=== PATIENT | female | born 1980 | race Caucasian/White ===

== ENCOUNTER 2018-03-07 08:44 | Observation (INO) ==
[2018-03-07 09:36] LABS: Bilirubin,Urine Negative (Negative); Clarity,Urine Cloudy (Clear); Glucose,Urine (UA) Negative (Negative); Leukocyte Esterase,Urine Negative (Negative); Nitrite,Urine Negative (Negative); Specific Gravity,Urine 1.015 (1.002-1.035); Urobilinogen,Urine 0.2 mg/dL (Less than 2)
[2018-03-07 09:38] LABS: Color,Urine Pink (Yellw/Straw)
[2018-03-07 09:41] LABS: RBC,Urine Innumerable /hpf (0-3); Squamous Epithelial Cell,Urine 0-5 /hpf (0-5)
--- NOTE | 2018-03-07 09:44 | ED ---
HPI General Chief Complaint: Abdominal Pain Stated Complaint: blood in urine/fever/leg/back pain-seen here yest Time Seen by Provider: 03/07/18 09:13 History of Present Illness HPI narrative: This is a 37-year-old female with a history of lupus, who presents here with complaints of abdominal pain with bloody urine. The patient' s been seen here twice in the last 4 days. She was offered admission yesterday however wished to go home. She states that when she got home, the pain became so severe that she is back again today and agrees to be admitted. She reports subjective fever at home. She states that she believes that is likely secondary to her lupus. She reports pain in her anterior thighs bilaterally. She denies any previous history of hematuria with previous lupus flares. She has been taking all of her medication as prescribed. Related Data Home Medications Medication Instructions Recorded Confirmed hydroxychloroquine [Plaquenil] 200 mg PO BID 03/02/18 03/07/18 levothyroxine [Synthroid] 25 mcg PO DAILY 03/02/18 03/07/18 Previous Rx's Medication Instructions Recorded ondansetron 8 mg PO Q8H PRN #10 tab 03/02/18 oxycodone 10 mg PO Q6H PRN #20 tab 03/02/18 sulfamethoxazole-trimethoprim 1 tab PO BID 7 Days #14 tab 03/02/18 [Bactrim DS] oxycodone-acetaminophen [Percocet] 1 tab PO Q4-6H PRN #12 tab 03/06/18 prednisone See Label Instructions PO PER PK 03/06/18 DIR #21 each Allergies Allergy/AdvReac Type Severity Reaction Status Date / Time metoclopramide [From Reglan] Allergy Severe Anxiety Verified 03/07/18 08:51 prochlorperazine Allergy Anxiety Verified 03/07/18 10:40 [From Compazine] ketorolac [From Toradol] AdvReac Intermediate Hives Verified 03/07/18 08:51 Review of Systems Constitutional Denies chills and Reports fever(s) (Subjective.) Eyes Reports system reviewed and no additional complaints, except as docu ENT Reports system reviewed and no additional complaints, except as docu Cardiovascular Reports system reviewed and no additional complaints, except as docu Respiratory Reports system reviewed and no additional complaints, except as docu Gastrointestinal Reports abdominal pain (Suprapubic pain), Denies nausea and Denies vomiting Genitourinary Reports hematuria and Reports dysuria Musculoskeletal Denies back pain Neurologic Reports system reviewed and no additional complaints, except as docu PMFSH Social History Social History Substance History: No History of Abuse Second Hand Smoke Exposure: No Smoking Status: Former smoker Tobacco Type: Cigarettes How Often Do You Have a Drink Containing Alcohol: Monthly or less Recent Travel in [facility] within the Last 8 Weeks: No Recent Out of Country Travel within the Last 8 Weeks: No Immunization History Tetanus Immunization: <5 Years Exam Narrative Exam Narrative: GENERAL: Well-developed well-nourished female in no acute respiratory distress. SKIN: Focused skin assessment warm/dry. HEAD: Atraumatic. Normocephalic. EYES: No scleral icterus. No injection or drainage. ENT: No nasal bleeding or discharge. Mucous membranes pink and moist. NECK: Trachea midline. Supple. CARDIOVASCULAR: Regular rate and rhythm. No murmur appreciated. RESPIRATORY: No accessory muscle use. Clear to auscultation. Breath sounds equal bilaterally. GASTROINTESTINAL: Abdomen soft, nondistended. Patient has subjective tenderness in her infraumbilical area. Positive guarding. No rebound. MUSCULOSKELETAL: No obvious deformities. No clubbing. No cyanosis. No edema. Objective pain in her anterior thighs bilaterally. NEUROLOGICAL: Awake and alert. No obvious cranial nerve deficits. Motor grossly within normal limits. Normal speech. Course Initial Documented Vital Signs Temperature 98.4 F 03/07/18 08:49 Pulse Rate 80 03/07/18 08:49 Respiratory Rate 14 03/07/18 08:49 Blood Pressure 125/73 03/07/18 08:49 Pulse Oximetry 98 03/07/18 08:49 Last Documented Vital Signs Temperature 98.4 F 03/07/18 08:49 Pulse Rate 69 03/07/18 11:29 Respiratory Rate 16 03/07/18 11:29 Blood Pressure 113/63 03/07/18 11:29 Pulse Oximetry 96 03/07/18 11:29 Medical Decision Making MDM Narrative Medical decision making narrative: 37-year-old female history of lupus, seen here twice previously in the last 4 days, presents today with complaints of continued pain and hematuria. Patient also reports fever. Urinalysis shows worsening hematuria. Patient is afebrile here. She is agreed for admission today for pain control. Case was discussed with Dr. Alhaji Yung, [facility]ist. Medical Screen Exam Complete: Yes Emergency Medical Condition: Yes Differential Diagnosis Differential Diagnosis: Lupus flare versus hemorrhagic cystitis versus small renal calculus Lab Data Result diagrams: 03/07/18 10:20 03/07/18 10:20 Lab Results 03/07/18 03/07/18 03/07/18 Range/Units 09:27 10:20 10:20 CBC w Diff Auto diff final WBC 13.3 H D (4.0-11.0) th/mm3 RBC 3.75 L (4.00-5.30) mil/mm3 Hgb 12.1 (11.6-15.3) gm/dL Hct 35.5 (35.0-46.0) % MCV 94.7 (80.0-100.0) fL MCH 32.2 (27.0-34.0) pg MCHC 34.0 (32.0-36.0) % RDW 13.4 (11.6-17.2) % Plt Count 296 (150-450) th/mm3 MPV 7.8 (7.0-11.0) fL Neut % (Auto) 77.9 H (16.0-70.0) % Lymph % (Auto) 12.3 (9.0-44.0) % [place] % (Auto) 6.9 (0.0-8.0) % Eos % (Auto) 0.1 (0.0-4.0) % Baso % (Auto) 2.8 H (0.0-2.0) % Neut # (Auto) 10.4 H (1.8-7.7) th/mm3 Lymph # (Auto) 1.6 (1.0-4.8) th/mm3 [place] # (Auto) 0.9 (0.0-0.9) th/mm3 Eos # (Auto) 0.0 (0.0-0.4) th/mm3 Baso # (Auto) 0.4 H (0.0-0.2) th/mm3 WBC Differential . Differential Comment . Sodium 139 (136-145) meq/L Potassium 3.8 (3.5-5.1) meq/L Chloride 102 (98-107) meq/L Carbon Dioxide 29.5 (21.0-32.0) meq/L Anion Gap 8 (5-15) meq/L BUN 14 (7-18) mg/dL Creatinine 0.80 (0.50-1.00) mg/dL Estimated GFR 80 L (>89) mL/min Random Glucose 101 (74-106) mg/dL Calcium 8.4 L (8.5-10.1) mg/dL Total Bilirubin 0.4 (0.2-1.0) mg/dL AST 17 (15-37) U/L ALT 21 (10-53) U/L Alkaline Phosphatase 64 (45-117) U/L Total Protein 7.3 (6.4-8.2) g/dL Albumin 3.8 (3.4-5.0) g/dL Lipase 139 (73-393) U/L Ur Collection Type Clean catch Urine Color [place] H (Yellw/Straw) Urine Clarity Cloudy H (Clear) Urine pH 8.0 (5.0-8.5) Ur Specific [place] 1.015 (1.002-1.035) Urine Protein Trace (Neg-Trace) mg/dL Urine Glucose (UA) Negative (Negative) mg/dL Urine Ketones Negative (Negative) mg/dL Urine Occult Blood Large H (Negative) Urine Nitrate Negative (Negative) Urine Bilirubin Negative (Negative) Urine Urobilinogen 0.2 (Less than 2) mg/dL Ur Leukocyte Esterase Negative (Negative) Urine RBC Innumerable H (0-3) /hpf Urine WBC 6-8 H (0-5) /hpf Ur Squamous Epith Cells 0-5 (0-5) /hpf Micro UA Comment Culture not ind Ur Microscopic Review Microscopic reviewed Urine Culture Comments Culture not ind Discharge Plan Discharge Disposition Patient Disposition: ED Admit(ED Internal Use Only) Discharge Order Discharge Orders: ED Use Only Admit Order (Routine); Ordered 03/07/18 Ordered By: Asad Chamberlain Discharge Details Diagnosis: Intractable abdominal pain, Hematuria, Lupus (systemic lupus erythematosus) Physicians Team ED Provider: Asad Chamberlain Primary Care Provider: UNKNOWN, Attending Provider: Alhaji Yung Rxs /Orders / Referrals /Forms Prescriptions: No Action levothyroxine [Synthroid] 25 mcg Tablet 25 mcg PO DAILY RF: 0 hydroxychloroquine [Plaquenil] 200 mg Tablet 200 mg PO BID RF: 0 sulfamethoxazole-trimethoprim [Bactrim DS] 800-160 mg tablet 1 tab PO BID 7 Days Qty: 14 RF: 0 ondansetron 8 mg tablet,disintegrating 8 mg PO Q8H PRN (Reason: nausea and vomiting) Qty: 10 RF: 1 oxycodone 10 mg tablet 10 mg PO Q6H PRN (Reason: Acute Pain Exception) Qty: 20 RF: 0 prednisone 10 mg tablets,dose pack See Label Instructions PO PER PKG DIR Qty: 21 RF: 0 oxycodone-acetaminophen [Percocet] 5-325 mg tablet 1 tab PO Q4-6H PRN (Reason: pain) Qty: 12 RF: 0 Status ED Status: Admitted Observation Patient
[2018-03-07 10:31] LABS: Baso # (Auto) 0.4 th/mm3 (0.0-0.2); Baso % (Auto) 2.8 % (0.0-2.0); Eos % (Auto) 0.1 % (0.0-4.0); Hematocrit 35.5 % (35.0-46.0); Hemoglobin 12.1 gm/dL (11.6-15.3); Lymph # (Auto) 1.6 th/mm3 (1.0-4.8); Lymph % (Auto) 12.3 % (9.0-44.0); Mean Corpuscular Hemoglobin 32.2 pg (27.0-34.0); Mean Corpuscular Volume 94.7 fL (80.0-100.0); Mean Platelet Volume 7.8 fL (7.0-11.0); Mono # (Auto) 0.9 th/mm3 (0.0-0.9); Mono % (Auto) 6.9 % (0.0-8.0); Neut # (Auto) 10.4 th/mm3 (1.8-7.7); Neut % (Auto) 77.9 % (16.0-70.0); Platelet Count 296 th/mm3 (150-450); Red Blood Count 3.75 mil/mm3 (4.00-5.30); Red Cell Distribution Width 13.4 % (11.6-17.2); White Blood Count 13.3 th/mm3 (4.0-11.0)
[2018-03-07] MEDS ORDERED: HYDROmorphone PF Inj 2 MG/ML Vial IV.PUSH ONE ×2 (10:35→11:22)
[2018-03-07 10:42] LABS: Chloride 102 meq/L (98-107); Potassium 3.8 meq/L (3.5-5.1); Sodium 139 meq/L (136-145)
[2018-03-07 10:45] LABS: Calcium 8.4 mg/dL (8.5-10.1)
[2018-03-07 10:46] LABS: Albumin 3.8 g/dL (3.4-5.0); Anion Gap 8 meq/L (5-15); Blood Urea Nitrogen 14 mg/dL (7-18); Carbon Dioxide 29.5 meq/L (21.0-32.0); Glucose,Random 101 mg/dL (74-106); Lipase 139 U/L (73-393)
[2018-03-07 10:49] LABS: Alanine Aminotransferase 21 U/L (10-53); Aspartate Aminotransferase 17 U/L (15-37); Glomerular Filtration Rate 80 mL/min (>89)
[2018-03-07 10:50] LABS: Total Protein 7.3 g/dL (6.4-8.2)
[2018-03-07 10:52] LABS: Alkaline Phosphatase 64 U/L (45-117)
[2018-03-07] MEDS ORDERED: Bisacodyl 10 MG Supp RECTAL PRN (10:52)
[2018-03-07] MEDS: Sod Chloride 0.9% Inj 1,000 ML IV.CONT SCH ×2 (11:07→23:21)
--- NOTE | 2018-03-07 12:06 | P.HP ---
History of Present Illness Primary Care Physician: UNKNOWN Chief Complaint: Abdominal pain and hematuria History of Present Illness: This is a pleasant 37-year-old female patient with a known medical history of lupus and hypothyroidism presented to the ED with a 4-day complaint of abdominal pain and hematuria. Patient has been to the ER 3 times in the past week with the same complaints, she states that her abdominal pain has worsened over the past several days, starting in her left upper quadrant and radiating to the mid abdomen as well as left back pain. She does admit to subjective fevers at home with a T-max of 101 as well as chills, as well as nausea and vomiting. She has been unable to eat or drink anything without any emesis and nausea. Patient also states that she noticed blood in her urine 4 days ago which has not improved. Patient does not follow with a director consumer, states that due to insurance reasons she has not followed up. She does take Plaquenil at home. Her last serious flare-up of lupus was roughly 3 years ago and at that time she did have hematuria and followed with a urologist. Patient states she may be having a flare-up, states that she has some bruising on her upper extremities as well as the overall pain, this is similar to what she has had in the past. - Diagnosis (1) Intractable abdominal pain (2) Hematuria (3) Lupus (systemic lupus erythematosus) Review of Systems All other systems reviewed negative except as stated in HPI PMFSH - History History Provided By: Patient - Medical History Medical History: Medical History (Last Reviewed 03/07/18 @ 12:04 by Yumiko Sahni) H/O: hysterectomy Lupus - Surgical History Surgical History: Surgical History (Last Reviewed 03/07/18 @ 12:04 by Yumiko Sahni) Hx laparoscopic cholecystectomy - Family History Family History: Family History (Last Updated 03/07/18 @ 12:05 by Yumiko Sahni) Father Lupus (systemic lupus erythematosus) - Social History I have reviewed the patient's Social History: Yes - Tobacco History Second Hand Smoke Exposure: No Tobacco Use In Past 30 Days: No (quit 2014) Smoking Status: Former smoker Tobacco Type: Cigarettes - Alcohol History How Often Do You Have a Drink Containing Alcohol: Monthly or less - Substance Use History Substance History: No History of Abuse - Travel History Recent Travel in the [place] Within the Last 8 Weeks: No Recent Travel Out of the Country Within the Last 8 Weeks: No - Immunization History Tetanus Immunization: <5 Years Medications and Allergies Active Medications: Active Medications Acetaminophen (Tylenol) 650 mg PO Q4H PRN PRN Reason: Temp > 100.4 Al Hydroxide/Mg Hydroxide (Milk Of Magnesia Liq) 30 ml PO Q12H PRN PRN Reason: Mild Constipation Bisacodyl (Dulcolax Supp) 10 mg RECTAL DAILY PRN PRN Reason: SEVERE CONSITIPATION Sodium Chloride (Ns Inj) 1,000 mls @ 100 mls/hr IV.CONT .Q10H ALEX Last Admin: 03/07/18 11:07 Dose: 100 mls/hr Lactulose (Lactulose Liq) 30 ml PO DAILY PRN PRN Reason: SEVERE CONSITIPATION Ondansetron HCl (Zofran Inj) 4 mg IV.PUSH Q6H PRN PRN Reason: NAUSEA OR VOMITING Sennosides (Senokot) 17.2 mg PO Q12H PRN PRN Reason: Moderate Constipation Sodium Chloride (Ns Flush) 2 ml IV.FLUSH PRN PRN PRN Reason: FLUSH AFTER USING IV ACCESS Sodium Chloride (Ns Flush) 2 ml IV.FLUSH BID ALEX Sodium Chloride (Ns Flush) 2 ml IV.FLUSH PRN PRN PRN Reason: FLUSH AFTER USING IV ACCESS Allergies Allergy/AdvReac Type Severity Reaction Status Date / Time metoclopramide [From Reglan] Allergy Severe Anxiety Verified 03/07/18 08:51 prochlorperazine Allergy Anxiety Verified 03/07/18 10:40 [From Compazine] ketorolac [From Toradol] AdvReac Intermediate Hives Verified 03/07/18 08:51 Home Medications Medication Instructions Recorded Confirmed Type hydroxychloroquine [Plaquenil] 200 mg PO BID 03/02/18 03/07/18 History levothyroxine [Synthroid] 25 mcg PO DAILY 03/02/18 03/07/18 History Exam Vital signs: Vital Signs 03/07/18 08:49 03/07/18 10:28 03/07/18 11:29 Temperature 98.4 F Pulse Rate 80 70 69 Respiratory Rate 14 18 16 Blood Pressure 125/73 127/67 113/63 Pulse Oximetry 98 98 96 Intake & Output 03/06/18 03/07/18 03/07/18 18:59 06:59 18:59 Weight 77.4 kg Other: # Voids 1 Date of Last Bowel Movement 03/06/18 Narrative: GENERAL: Well-developed, well-nourished patient with abdominal pain. SKIN: Warm and dry. No rash. HEAD: Normocephalic. Atraumatic. EYES: Pupils equal and round. No scleral icterus. No injection or drainage. ENT: No nasal bleeding or discharge. Mucous membranes pink and moist. NECK: Supple. Trachea midline. CARDIOVASCULAR: Regular rate and rhythm. S1, S2 noted. No murmur appreciated. RESPIRATORY: No accessory muscle use. Clear to auscultation. Breath sounds equal bilaterally. GASTROINTESTINAL: Abdomen soft, non-tender, nondistended. Normoactive bowel sounds x4. MUSCULOSKELETAL: No obvious deformities. Extremities without clubbing, cyanosis , or edema. NEUROLOGICAL: Awake and alert. No obvious cranial nerve deficits. Motor grossly within normal limits. 5/5 muscle strength in bilateral upper and lower extremities. Normal speech. PSYCHIATRIC: Appropriate mood and affect; insight and judgment normal. Results - Labs CBC & Chem 7: 03/07/18 10:20 03/07/18 10:20 Labs: Laboratory Results - last 24 hr 03/07/18 03/07/18 03/07/18 09:27 10:20 10:20 CBC w Diff Auto diff final WBC 13.3 H D RBC 3.75 L Hgb 12.1 Hct 35.5 MCV 94.7 MCH 32.2 MCHC 34.0 RDW 13.4 Plt Count 296 MPV 7.8 Neut % (Auto) 77.9 H Lymph % (Auto) 12.3 [place] % (Auto) 6.9 Eos % (Auto) 0.1 Baso % (Auto) 2.8 H Neut # (Auto) 10.4 H Lymph # (Auto) 1.6 [place] # (Auto) 0.9 Eos # (Auto) 0.0 Baso # (Auto) 0.4 H WBC Differential . Differential Comment . Sodium 139 Potassium 3.8 Chloride 102 Carbon Dioxide 29.5 Anion Gap 8 BUN 14 Creatinine 0.80 Estimated GFR 80 L Random Glucose 101 Calcium 8.4 L Total Bilirubin 0.4 AST 17 ALT 21 Alkaline Phosphatase 64 Total Protein 7.3 Albumin 3.8 Lipase 139 Ur Collection Type Clean catch Urine Color [place] H Urine Clarity Cloudy H Urine pH 8.0 Ur Specific [place] 1.015 Urine Protein Trace Urine Glucose (UA) Negative Urine Ketones Negative Urine Occult Blood Large H Urine Nitrate Negative Urine Bilirubin Negative Urine Urobilinogen 0.2 Ur Leukocyte Esterase Negative Urine RBC Innumerable H Urine WBC 6-8 H Ur Squamous Epith Cells 0-5 Micro UA Comment Culture not ind Ur Microscopic Review Microscopic reviewed Urine Culture Comments Culture not ind Caprini VTE Risk Assessment Caprini VTE Risk Assessment: No/Low Risk (score <= 1) Caprini Risk Assessment Model: Point Value = 1 Point Value = 2 Point Value = 3 Point Value = 5 Age 41-60 Minor surgery BMI > 25 kg/m2 Swollen legs Varicose veins or History of unexplained or recurrent spontaneous Oral contraceptives or hormone replacement Sepsis (< 1 month) Serious lung disease, including pneumonia (< 1 month) Abnormal pulmonary function Acute myocardial infarction Congestive heart failure (< 1 month) History of inflammatory bowel disease Medical patient at bed rest Age 61-74 Arthroscopic surgery Major open surgery (> 45 min) Laparoscopic surgery (> 45 min) Malignancy Confined to bed (> 72 hours) Immobilizing plaster cast Central venous access Age >= 75 History of VTE Family history of VTE Factor V Leiden Prothrombin [id number] Lupus anticoagulant Anticardiolipin antibodies Elevated serum homocysteine Heparin-induced thrombocytopenia Other congenital or acquired thrombophilia Stroke (< 1 month) Elective arthroplasty Hip, pelvis, or leg fracture Acute spinal cord injury (< 1 month) Prophylaxis Regimen: Total Risk Factor Score Risk Level Prophylaxis Regimen 0-1 Low Early ambulation 2 Moderate Order ONE of the following: *Sequential Compression Device (SCD) *Heparin 5000 units SQ BID 3-4 Higher Order ONE of the following medications: *Heparin 5000 units SQ TID *Enoxaparin/Lovenox 40 mg SQ daily (WT < 150 kg, CrCl > 30 mL/min) *Enoxaparin/Lovenox 30 mg SQ daily (WT < 150 kg, CrCl > 10-29 mL/min) *Enoxaparin/Lovenox 30 mg SQ BID (WT < 150 kg, CrCl > 30 mL/min) AND/OR *Sequential Compression Device (SCD) 5 or more Highest Order ONE of the following medications: *Heparin 5000 units SQ TID (Preferred with Epidurals) *Enoxaparin/Lovenox 40 mg SQ daily (WT < 150 kg, CrCl > 30 mL/min) *Enoxaparin/Lovenox 30 mg SQ daily (WT < 150 kg, CrCl > 10-29 mL/min) *Enoxaparin/Lovenox 30 mg SQ BID (WT < 150 kg, CrCl > 30 mL/min) AND *Sequential Compression Device (SCD) Assessment and Plan - Assessment (1) Intractable abdominal pain Code(s): R10.9 - Unspecified abdominal pain Status: Acute (2) Hematuria Code(s): R31.9 - Hematuria, unspecified Status: Acute (3) Lupus (systemic lupus erythematosus) Code(s): M32.9 - Systemic lupus erythematosus, unspecified Status: Acute - Plan This is a 37-year-old female patient who presented to the ED with: Abdominal pain x 4 days Nausea and vomiting -Differential possible constipation vs gastroenteritis vs SLE flare -Abdominal/pelvis CT reviewed from yesterday in ED showing unremarkable kidneys and urinary bladder. No inflammatory change. Moderate amount of stool present. -CBC and BMP reviewed, essentially unremarkable. UA negative. -Mild leukocytosis, was given steroids in ED yesterday, may be contributing. -Continue IVF to ensure hydration. -Pain control with IV Dilaudid as needed per pain scale. Was given a total of 2 mg IV in ED. -Antiemetics as needed. Continue bowel regimen. -PO intake as tolerated. Start with clear liquids. -Supportive care. Hematuria -Complaints of hematuria x 4 days. UA negative for infection. -Differential included SLE flare vs hemorrhagic cystitis -Was given 125 mg IV x 1 in ED yesterday. Will add IV steroids scheduled. -Assess response for improvement, may need to consult urology if no improvement. -Continue IVF. History of systemic lupus erythema Possible flare -Patient does complain of upper thigh bruising, says this is typical for her when she is having a flare. -Will check a DIC panel including LDH, reticulocyte count and haptoglobin. -H&H stable. Platelets stable. -Continue to follow. -Continue steroids as ordered. Hypothyroidism, chronic -Continue home Synthroid. DVT prophylaxis: Ambulation. (2) Hematuria Qualifiers: Hematuria type: gross Qualified Code(s): R31.0 - Gross hematuria (3) Lupus (systemic lupus erythematosus) Qualifiers: Systemic lupus erythematosus type: unspecified Systemic lupus erythematosus organ involvement: unspecified Qualified Code(s): M32.9 - Systemic lupus erythematosus, unspecified
[2018-03-07] MEDS ORDERED: HYDROmorphone PF Inj 2 MG/ML Vial IV.PUSH PRN (12:13)
[2018-03-07] MEDS: MethylPREDNISolone Sod Succinate Inj 125 MG/2 ML Vial IV.PUSH SCH ×2 (13:26→20:25)
[2018-03-07] MEDS: HYDROmorphone PF Inj 2 MG/ML Vial IV.PUSH PRN ×4 (14:37→23:18)
[2018-03-07 16:50] LABS: Haptoglobin 174 mg/dL (30-200); Lactate Dehydrogenase 203 U/L (84-246)
[2018-03-07] MEDS: Senna/Docusate Sodium 8.6/50 MG Tablet PO SCH (20:26)
[2018-03-07] MEDS: Hydroxychloroquine 200 MG Tablet PO SCH (20:26)
[2018-03-08] MEDS: HYDROmorphone PF Inj 2 MG/ML Vial IV.PUSH PRN ×7 (02:04→22:09)
[2018-03-08] MEDS: MethylPREDNISolone Sod Succinate Inj 125 MG/2 ML Vial IV.PUSH SCH ×3 (04:54→21:02)
[2018-03-08] MEDS: Senna/Docusate Sodium 8.6/50 MG Tablet PO SCH ×2 (08:12→20:59)
[2018-03-08] MEDS: Hydroxychloroquine 200 MG Tablet PO SCH ×2 (08:12→20:59)
[2018-03-08] MEDS: Sod Chloride 0.9% Inj 1,000 ML IV.CONT SCH ×2 (08:17→18:25)
--- NOTE | 2018-03-08 11:35 | P.PNIM ---
Subjective Interval history: Follow-up hematuria, abdominal pain, nausea and vomiting and generalized pain. Patient is in examined, lying in bed this morning she had complaints of some chest discomfort and overall generalized pain and itching. Requesting Benadryl. EKG showing bradycardia, no ST changes. Patient does have a history of bradycardia she states that at one point they wanted to put in a pacemaker. She has been bradycardic although asymptomatic. Chest pain is resolved. Will increase dose of pain medications this is likely SLE flare. Vital signs stable. Afebrile. Continue to monitor. Physical Exam Vital signs: Vital Signs 03/07/18 13:30 03/07/18 16:00 03/07/18 20:00 Temperature 98 F 98.3 F 98.5 F Pulse Rate 83 79 74 Respiratory Rate 20 20 17 Blood Pressure 117/56 L 123/61 124/65 Pulse Oximetry 95 96 95 03/07/18 21:18 03/07/18 23:00 03/07/18 23:54 Temperature Pulse Rate Respiratory Rate 17 18 18 Blood Pressure Pulse Oximetry 03/08/18 00:00 03/08/18 02:50 03/08/18 08:00 Temperature 96.7 F L 97.1 F L Pulse Rate 55 L 60 Respiratory Rate 18 18 20 Blood Pressure 114/67 137/78 Pulse Oximetry 96 98 Intake & Output 03/07/18 03/08/18 03/08/18 18:59 06:59 18:59 Intake Total 1100 / 1100 1600 / 1600 1000 / 1000 Balance 1100 / 1100 1600 / 1600 1000 / 1000 Weight 77.4 kg Intake: IV 1000 / 1000 1000 / 1000 NS Inj 1,000 ML @ 100 mls/hr IV 1000 / 1000 1000 / 1000 .CONT .Q10H ALEX Rx#:[id number] Oral 1100 / 1100 600 / 600 Other: # Voids 3 2 Date of Last Bowel Movement 03/06/18 03/06/18 Narrative: GENERAL: Well-developed, well-nourished patient with complaints of generalized pain. Itchy all over SKIN: Warm and dry. No rash. HEAD: Normocephalic. Atraumatic. EYES: Pupils equal and round. No scleral icterus. No injection or drainage. ENT: No nasal bleeding or discharge. Mucous membranes pink and moist. NECK: Supple. Trachea midline. CARDIOVASCULAR: Regular rate and rhythm. S1, S2 noted. No murmur appreciated. RESPIRATORY: No accessory muscle use. Clear to auscultation. Breath sounds equal bilaterally. GASTROINTESTINAL: Abdomen soft, non-tender, nondistended. Normoactive bowel sounds x4. MUSCULOSKELETAL: No obvious deformities. Extremities without clubbing, cyanosis , or edema. NEUROLOGICAL: Awake and alert. No obvious cranial nerve deficits. Motor grossly within normal limits. 5/5 muscle strength in bilateral upper and lower extremities. Normal speech. PSYCHIATRIC: Appropriate mood and affect; insight and judgment normal. Results - Labs CBC & Chem 7: 03/07/18 10:20 03/07/18 10:20 Laboratory Results - last 24 hr 03/07/18 03/07/18 10:20 10:20 Retic Count 3.0 Absolute Retic 109.0 Haptoglobin 174 Lactate Dehydrogenase 203 Assessment and Plan - Assessment (1) Intractable abdominal pain Code(s): R10.9 - Unspecified abdominal pain Status: Acute (2) Hematuria Code(s): R31.9 - Hematuria, unspecified Status: Acute (3) Lupus (systemic lupus erythematosus) Code(s): M32.9 - Systemic lupus erythematosus, unspecified Status: Acute - Plan This is a 37-year-old female patient who presented to the ED with: Atypical chest pain History of bradycardia -Midsternal chest pain that is sharp in nature improved with Dilaudid this morning. -EKG obtained, bradycardic, no ST changes to indicate ischemia. Continue on cardiac telemetry. -Check troponin and CK-MB. Follow. -Increased pain medications. Assess response. -Likely secondary to SLE flare. Abdominal pain x 4 days. Improved. Nausea and vomiting. Improved. -Differential possible constipation vs gastroenteritis vs SLE flare -Abdominal/pelvis CT reviewed from yesterday in ED showing unremarkable kidneys and urinary bladder. No inflammatory change. Moderate amount of stool present. -CBC and BMP reviewed, essentially unremarkable. UA negative. -Mild leukocytosis, was given steroids in ED yesterday, may be contributing. -Continue IVF to ensure hydration. -Pain control with IV Dilaudid as needed per pain scale. -Antiemetics as needed. Continue bowel regimen. No BM overnight. -PO intake as tolerated. Tolerating clear liquids. Diet as tolerated. Hematuria. Improved. -Complaints of hematuria x 4 days. -UA negative for infection. -Differential included SLE flare vs hemorrhagic cystitis -Was given 125 mg IV x 1 in ED. Continue IV steroids scheduled. -Assess response for improvement, may need to consult urology if no improvement. -Continue IVF. History of systemic lupus erythema Possible flare -Patient does complain of upper thigh bruising, says this is typical for her when she is having a flare. -LDH, reticulocyte count and haptoglobin all within normal limits. -H&H stable. Platelets stable. -Continue to follow. -Continue steroids as ordered. Hypothyroidism, chronic -Continue home Synthroid. DVT prophylaxis: Ambulation. Discharge Planning: Await clinical improvement (2) Hematuria Qualifiers: Hematuria type: gross Qualified Code(s): R31.0 - Gross hematuria (3) Lupus (systemic lupus erythematosus) Qualifiers: Systemic lupus erythematosus type: unspecified Systemic lupus erythematosus organ involvement: unspecified Qualified Code(s): M32.9 - Systemic lupus erythematosus, unspecified
[2018-03-08 12:50] LABS: Chloride 107 meq/L (98-107); Potassium 3.9 meq/L (3.5-5.1); Sodium 142 meq/L (136-145)
[2018-03-08 12:52] LABS: Anion Gap 8 meq/L (5-15); Calcium 7.8 mg/dL (8.5-10.1); Carbon Dioxide 27.3 meq/L (21.0-32.0); Glucose,Random 132 mg/dL (74-106)
[2018-03-08 12:53] LABS: Blood Urea Nitrogen 8 mg/dL (7-18)
[2018-03-08 12:56] LABS: Glomerular Filtration Rate Greater Than 89 mL/min (>89)
[2018-03-08 13:01] LABS: Creatine Kinase 76 U/L (26-192)
[2018-03-08 13:08] LABS: Baso # (Auto) 0.1 th/mm3 (0.0-0.2); Baso % (Auto) 1.2 % (0.0-2.0); Hematocrit 33.2 % (35.0-46.0); Lymph # (Auto) 0.9 th/mm3 (1.0-4.8); Lymph % (Auto) 7.7 % (9.0-44.0); Mean Corpuscular HGB Conc 33.1 % (32.0-36.0); Mean Corpuscular Hemoglobin 31.3 pg (27.0-34.0); Mean Corpuscular Volume 94.7 fL (80.0-100.0); Mean Platelet Volume 7.8 fL (7.0-11.0); Mono # (Auto) 0.4 th/mm3 (0.0-0.9); Mono % (Auto) 3.5 % (0.0-8.0); Neut # (Auto) 10.9 th/mm3 (1.8-7.7); Neut % (Auto) 87.6 % (16.0-70.0); Platelet Count 276 th/mm3 (150-450); Red Blood Count 3.51 mil/mm3 (4.00-5.30); Red Cell Distribution Width 13.3 % (11.6-17.2); White Blood Count 12.3 th/mm3 (4.0-11.0)
[2018-03-09] MEDS: HYDROmorphone PF Inj 2 MG/ML Vial IV.PUSH PRN ×5 (01:54→22:48)
[2018-03-09] MEDS: Sod Chloride 0.9% Inj 1,000 ML IV.CONT SCH ×2 (04:00→14:10)
[2018-03-09] MEDS: MethylPREDNISolone Sod Succinate Inj 125 MG/2 ML Vial IV.PUSH SCH ×2 (05:46→21:02)
[2018-03-09] MEDS: Hydroxychloroquine 200 MG Tablet PO SCH ×2 (08:39→21:02)
[2018-03-09] MEDS: Senna/Docusate Sodium 8.6/50 MG Tablet PO SCH ×2 (08:39→21:02)
[2018-03-09] MEDS ORDERED: HYDROmorphone PF Inj 2 MG/ML Vial IV.PUSH PRN (10:04)
--- NOTE | 2018-03-09 10:15 | P.PNIM ---
Subjective Interval history: Follow-up hematuria and SLE flare. Patient seen and examined, lying in bed states she feels mildly improved. Will attempt to wean IV narcotics. Hematuria resolved. CP resolved. Patient is eating well without any nausea or vomiting. Abdominal pain improved. Will assess later this afternoon off IV narcotics and consider DC home. Physical Exam Vital signs: Vital Signs 03/08/18 12:00 03/08/18 16:00 03/08/18 20:00 Temperature 96.5 F L 98.7 F 96.5 F L Pulse Rate 45 L 54 L 67 Respiratory Rate 20 20 18 Blood Pressure 140/66 120/72 110/74 Pulse Oximetry 98 95 98 03/09/18 00:00 03/09/18 04:00 03/09/18 08:40 Temperature 95.5 F L 95.8 F L 97.4 F L Pulse Rate 56 L 49 L 59 L Respiratory Rate 18 18 16 Blood Pressure 128/78 137/83 155/92 H Pulse Oximetry 97 98 96 Intake & Output 03/08/18 03/09/18 03/09/18 18:59 06:59 18:59 Intake Total 2600 / 2600 1720 / 1720 Output Total 1000 / 1000 Balance 2600 / 2600 720 / 720 Weight 82.3 kg Intake: IV 2000 / 2000 1000 / 1000 NS Inj 1,000 ML @ 100 mls/hr IV 2000 / 2000 1000 / 1000 .CONT .Q10H [facility] Rx#:[id number] Oral 600 / 600 720 / 720 Output: Urine 1000 / 1000 Other: # Voids 6 2 Date of Last Bowel Movement 03/08/18 # Bowel Movements 0 Narrative: GENERAL: Well-developed, well-nourished patient in nad. SKIN: Warm and dry. No rash. HEAD: Normocephalic. Atraumatic. EYES: Pupils equal and round. No scleral icterus. No injection or drainage. ENT: No nasal bleeding or discharge. Mucous membranes pink and moist. NECK: Supple. Trachea midline. CARDIOVASCULAR: Regular rate and rhythm. S1, S2 noted. No murmur appreciated. RESPIRATORY: No accessory muscle use. Clear to auscultation. Breath sounds equal bilaterally. GASTROINTESTINAL: Abdomen soft, non-tender, nondistended. Normoactive bowel sounds x4. MUSCULOSKELETAL: No obvious deformities. Extremities without clubbing, cyanosis , or edema. NEUROLOGICAL: Awake and alert. No obvious cranial nerve deficits. Motor grossly within normal limits. 5/5 muscle strength in bilateral upper and lower extremities. Normal speech. PSYCHIATRIC: Appropriate mood and affect; insight and judgment normal. Results - Labs CBC & Chem 7: 03/08/18 12:37 03/08/18 12:30 Laboratory Results - last 24 hr 03/08/18 03/08/18 03/08/18 12:30 12:30 12:37 CBC w Diff Auto diff final WBC 12.3 H RBC 3.51 L Hgb 11.0 L Hct 33.2 L MCV 94.7 MCH 31.3 MCHC 33.1 RDW 13.3 Plt Count 276 MPV 7.8 Neut % (Auto) 87.6 H Lymph % (Auto) 7.7 L [place] % (Auto) 3.5 Eos % (Auto) 0.0 Baso % (Auto) 1.2 Neut # (Auto) 10.9 H Lymph # (Auto) 0.9 L [place] # (Auto) 0.4 Eos # (Auto) 0.0 Baso # (Auto) 0.1 WBC Differential . Differential Comment . Sodium 142 Potassium 3.9 Chloride 107 Carbon Dioxide 27.3 Anion Gap 8 BUN 8 Creatinine 0.69 Estimated GFR Greater than 89 Random Glucose 132 H Calcium 7.8 L Total Creatine Kinase 76 Troponin I Less than 0.02 L Assessment and Plan - Assessment (1) Intractable abdominal pain Code(s): R10.9 - Unspecified abdominal pain Status: Acute (2) Hematuria Code(s): R31.9 - Hematuria, unspecified Status: Acute (3) Lupus (systemic lupus erythematosus) Code(s): M32.9 - Systemic lupus erythematosus, unspecified Status: Acute - Plan This is a 37-year-old female patient who presented to the ED with: Atypical chest pain. Resolved. History of bradycardia -Midsternal chest pain that is sharp in nature that has improved. -EKG obtained, bradycardic, no ST changes to indicate ischemia. Continue on cardiac telemetry. -Troponin and CK-MB, negative. -Continue pain medications, will decrease dose. -Likely secondary to SLE flare. Abdominal pain x 4 days. Improved. Nausea and vomiting. Improved. -Differential possible constipation vs gastroenteritis vs SLE flare. -Abdominal/pelvis CT reviewed from yesterday in ED showing unremarkable kidneys and urinary bladder. No inflammatory change. Moderate amount of stool present. -CBC and BMP reviewed, essentially unremarkable. UA negative. -Mild leukocytosis, was given steroids in ED yesterday, may be contributing. -Continue IVF to ensure hydration. -Pain control with IV Dilaudid as needed per pain scale. -Antiemetics as needed. Continue bowel regimen. BM overnight. -PO intake as tolerated. Tolerating clear liquids. Diet as tolerated. Hematuria. Improved. -Complaints of hematuria x 4 days. -UA negative for infection. -Differential included SLE flare vs hemorrhagic cystitis -Was given 125 mg IV x 1 in ED. Continue IV steroids scheduled. -Assess response for improvement, may need to consult urology if no improvement. -Continue IVF. History of systemic lupus erythema Possible flare, improving. -Patient does complain of upper thigh bruising, says this is typical for her when she is having a flare. -LDH, reticulocyte count and haptoglobin all within normal limits. -H&H stable. Platelets stable. -Continue to follow. -Continue steroids as ordered. Hypothyroidism, chronic -Continue home Synthroid. DVT prophylaxis: Ambulation. Discharge Planning: Possible DC home if patient does well with weaning off narcotics. (2) Hematuria Qualifiers: Hematuria type: gross Qualified Code(s): R31.0 - Gross hematuria (3) Lupus (systemic lupus erythematosus) Qualifiers: Systemic lupus erythematosus type: unspecified Systemic lupus erythematosus organ involvement: unspecified Qualified Code(s): M32.9 - Systemic lupus erythematosus, unspecified
--- NOTE | 2018-03-09 12:26 | ECG ---
Date Performed: 03/08/2018 Time Performed: 08:23:50 PTAGE: 37 years EKG: JUNCTIONAL BRADYCARDIA NONSPECIFIC T-WAVE ABNORMALITY ABNORMAL RHYTHM ECG NO PREVIOUS TRACING DOCTOR: Corey Llanes Interpretating Date/Time 03/09/2018 12:24:26
[2018-03-09] MEDS ORDERED: Famotidine 20 MG Tablet PO ONE ×2 (13:55→14:30)
[2018-03-09] MEDS: Pantoprazole Inj 40 MG Vial IV.PUSH SCH (14:08)
[2018-03-09] MEDS ORDERED: HYDROmorphone PF Inj 0.5 MG/0.5 ML Syringe IV.PUSH ONE (14:10)
[2018-03-09 15:14] LABS: Albumin 3.6 g/dL (3.4-5.0)
[2018-03-09 15:26] LABS: Total Protein 7.1 g/dL (6.4-8.2)
[2018-03-09] MEDS: Sucralfate 1 GM Tablet PO SCH (17:00)
[2018-03-09] MEDS: Polyethylene Glycol 3350 17 GM Packet PO SCH (18:31)
[2018-03-09] MEDS: Acetaminophen 325 MG Tablet PO PRN (22:48)
[2018-03-10] MEDS: Sod Chloride 0.9% Inj 1,000 ML IV.CONT SCH ×2 (02:33→10:24)
[2018-03-10] MEDS: HYDROmorphone PF Inj 2 MG/ML Vial IV.PUSH PRN ×6 (02:33→22:39)
[2018-03-10 06:56] LABS: Chloride 105 meq/L (98-107); Potassium 4.4 meq/L (3.5-5.1); Sodium 141 meq/L (136-145)
[2018-03-10 07:01] LABS: Albumin 3.3 g/dL (3.4-5.0)
[2018-03-10 07:02] LABS: Glucose,Random 138 mg/dL (74-106)
[2018-03-10 07:05] LABS: Anion Gap 7 meq/L (5-15); Blood Urea Nitrogen 9 mg/dL (7-18); Calcium 7.8 mg/dL (8.5-10.1); Carbon Dioxide 28.9 meq/L (21.0-32.0); Lipase 58 U/L (73-393)
[2018-03-10 07:07] LABS: Aspartate Aminotransferase 17 U/L (15-37); Glomerular Filtration Rate Greater Than 89 mL/min (>89)
[2018-03-10 07:09] LABS: Total Protein 6.4 g/dL (6.4-8.2)
[2018-03-10 07:10] LABS: Alkaline Phosphatase 49 U/L (45-117)
[2018-03-10 07:13] LABS: Alanine Aminotransferase 45 U/L (10-53)
[2018-03-10] MEDS: Senna/Docusate Sodium 8.6/50 MG Tablet PO SCH ×2 (08:08→21:42)
[2018-03-10] MEDS: Hydroxychloroquine 200 MG Tablet PO SCH ×2 (08:08→21:33)
[2018-03-10] MEDS: Sucralfate 1 GM Tablet PO SCH ×2 (08:08→16:48)
[2018-03-10] MEDS: Polyethylene Glycol 3350 17 GM Packet PO SCH (08:09)
[2018-03-10] MEDS: MethylPREDNISolone Sod Succinate Inj 125 MG/2 ML Vial IV.PUSH SCH ×2 (08:10→21:34)
[2018-03-10] MEDS ORDERED: Diatrizoate Meglum/Diatrizoate Sod Liq 9 ML UDC PO ONE (11:17)
--- NOTE | 2018-03-10 11:20 | P.PNIM ---
Subjective Interval history: 37-year-old female who is seen examined today for intractable abdominal pain, hematuria, possible lupus exacerbation. Patient laying in bed holding her abdomen sitting rather poorly. She was given a diet yesterday with significant worsening of her upper abdominal pain with severe cramping. Patient is now n.p.o. and still with generalized abdominal discomfort. Discussed with the patient all the findings as far. She did acknowledge understanding. Awaiting GI and urology consultations. Patient did have a fever last night 102.9. Vital signs remained stable. Physical Exam Vital signs: Vital Signs 03/09/18 11:58 03/09/18 12:00 03/09/18 16:00 Temperature 98.4 F 97.7 F Pulse Rate 53 L 57 L 84 Respiratory Rate 18 18 Blood Pressure 124/69 131/78 Pulse Oximetry 95 96 03/09/18 20:00 03/09/18 23:09 03/10/18 00:00 Temperature 99.1 F 102.9 F H 100.7 F H Pulse Rate 78 72 Respiratory Rate 16 18 Blood Pressure 120/74 131/70 Pulse Oximetry 99 93 L 03/10/18 04:00 03/10/18 08:00 Temperature 98.2 F 98.6 F Pulse Rate 67 55 L Respiratory Rate 16 17 Blood Pressure 117/68 138/80 Pulse Oximetry 96 94 L Intake & Output 03/09/18 03/10/18 03/10/18 18:59 06:59 18:59 Intake Total 1000 / 1000 1000 / 1000 1000 / 1000 Balance 1000 / 1000 1000 / 1000 1000 / 1000 Weight 82.8 kg Intake: IV 1000 / 1000 1000 / 1000 1000 / 1000 NS Inj 1,000 ML @ 100 mls/hr IV 1000 / 1000 1000 / 1000 1000 / 1000 .CONT .Q10H [facility] Rx#:[id number] Other: # Voids 6 Date of Last Bowel Movement 03/08/18 03/08/18 # Bowel Movements 1 Narrative: GENERAL: Well-developed, well-nourished, in no acute distress. alert and orientated HEENT: Head is normocephalic without any lesions or masses noted. Facial features are symmetric. Eyes: Extraocular muscles are intact. Conjunctivae were clear. NECK: Supple without any masses. Trachea midline no deviation. No JVD, CARDIAC: Regular rhythm, regular rate. S1/S2 are heard. No murmurs gallops or rubs. LUNGS: Clear to auscultation bilaterally. No wheeze, rhonchi or rales. No use of accessory muscles on inspiration or expiration. ABDOMEN: Soft, nontender. Diffuse abdominal pain. Bowel sounds heard in all 4 quadrants. No organomegaly or masses. Negative rebound, negative guarding EXTREMITIES: No edema, pulses are equal bilaterally. No cyanosis or clubbing NEUROLOGY: Mood and affect appear appropriate. Cranial nerves II through XII grossly intact. Moving all extremities, speech is clear Results - Labs CBC & Chem 7: 03/08/18 12:37 03/10/18 06:05 Laboratory Results - last 24 hr 03/09/18 03/10/18 14:30 06:05 Sodium 141 Potassium 4.4 Chloride 105 Carbon Dioxide 28.9 Anion Gap 7 BUN 9 Creatinine 0.64 Estimated GFR Greater than 89 Random Glucose 138 H Calcium 7.8 L Total Bilirubin 0.4 0.5 Direct Bilirubin 0.1 0.1 Indirect Bilirubin 0.3 0.4 AST 56 H 17 ALT 66 H 45 Alkaline Phosphatase 72 49 Total Protein 7.1 6.4 D Albumin 3.6 3.3 L Lipase 91 58 L Assessment and Plan - Assessment (1) Intractable abdominal pain Code(s): R10.9 - Unspecified abdominal pain Status: Acute (2) Hematuria Code(s): R31.9 - Hematuria, unspecified Status: Acute (3) Lupus (systemic lupus erythematosus) Code(s): M32.9 - Systemic lupus erythematosus, unspecified Status: Acute - Plan Nonspecific abdominal pain, persistent Nausea and vomiting. Resolved -possible constipation vs gastroenteritis vs SLE flare. -Abdominal/pelvis CT was unremarkable kidneys and urinary bladder. No inflammatory change. Moderate amount of stool present. -CBC and BMP unremarkable. Urinalysis without any signs of infection -Continue IVF to ensure hydration. -Pain control with IV Dilaudid as needed per pain scale. -Antiemetics as needed. -PO intake as tolerated. Clear liquid diet Febrile illness -Unknown etiology at this time, -Obtain blood cultures, influenza testing, chest x-ray, urinalysis, repeat CT of the abdomen and pelvis Hematuria. -Complaints of hematuria x 4 days. -UA negative for infection. -Urology consulted for further recommendations Atypical chest pain. History of bradycardia -Could have been secondary to a lupus flare -Patient ruled out for any cardiac etiology with serial cardiac enzymes remain negative, serial EKGs without any changes History of systemic lupus erythema Possible flare, improving. -Patient does complain of upper thigh bruising, says this is typical for her when she is having a flare. -LDH, reticulocyte count and haptoglobin all within normal limits. -Obtain C-reactive protein, sed rate, TUCKER -H&H stable. Platelets stable. -Continue steroids at this time Hypothyroidism, chronic -Continue home Synthroid. DVT prophylaxis: -Low risk, ambulation (2) Hematuria Qualifiers: Hematuria type: gross Qualified Code(s): R31.0 - Gross hematuria (3) Lupus (systemic lupus erythematosus) Qualifiers: Systemic lupus erythematosus type: unspecified Systemic lupus erythematosus organ involvement: unspecified Qualified Code(s): M32.9 - Systemic lupus erythematosus, unspecified
[2018-03-10 12:47] LABS: Bilirubin,Urine Negative (Negative); Clarity,Urine Slightly Cloudy (Clear); Glucose,Urine (UA) Negative (Negative); Leukocyte Esterase,Urine Negative (Negative); Nitrite,Urine Negative (Negative); PH,Urine 7.5 (5.0-8.5); Urobilinogen,Urine 0.2 mg/dL (Less than 2)
[2018-03-10 12:59] LABS: Baso # (Auto) 0.1 th/mm3 (0.0-0.2); Baso % (Auto) 0.9 % (0.0-2.0); Eos % (Auto) 0.1 % (0.0-4.0); Hematocrit 31.8 % (35.0-46.0); Hemoglobin 10.7 gm/dL (11.6-15.3); Lymph # (Auto) 0.9 th/mm3 (1.0-4.8); Lymph % (Auto) 5.7 % (9.0-44.0); Mean Corpuscular HGB Conc 33.8 % (32.0-36.0); Mean Corpuscular Hemoglobin 31.9 pg (27.0-34.0); Mean Corpuscular Volume 94.6 fL (80.0-100.0); Mean Platelet Volume 8.2 fL (7.0-11.0); Mono # (Auto) 0.6 th/mm3 (0.0-0.9); Mono % (Auto) 4.1 % (0.0-8.0); Neut # (Auto) 14.1 th/mm3 (1.8-7.7); Neut % (Auto) 89.2 % (16.0-70.0); Platelet Count 257 th/mm3 (150-450); Red Blood Count 3.36 mil/mm3 (4.00-5.30); Red Cell Distribution Width 13.6 % (11.6-17.2); White Blood Count 15.7 th/mm3 (4.0-11.0)
[2018-03-10 12:59] LABS: Color,Urine Pink (Yellw/Straw)
[2018-03-10 13:00] LABS: RBC,Urine 51-189 /hpf (0-3); WBC,Urine 0-5 /hpf (0-5)
--- NOTE | 2018-03-10 13:34 | P.CONURO ---
History of Present Illness Service: Urology Consult date: 03/10/18 Requesting Physician: Yumiko Sahni Reason for Consult: hematuria Primary Care Provider: UNKNOWN Chief Complaint: Abdominal pain and hematuria History of Present Illness: This is a pleasant 37-year-old female patient with a known medical history of lupus and hypothyroidism presented to the ED with a 4-day complaint of abdominal pain and hematuria. Patient has been to the ER 3 times in the past week with the same complaints, she states that her abdominal pain has worsened over the past several days, starting in her left upper quadrant and radiating to the mid abdomen as well as left back pain. She does admit to subjective fevers at home with a T-max of 101 as well as chills, as well as nausea and vomiting. She has been unable to eat or drink anything without any emesis and nausea. Patient also states that she noticed blood in her urine 4 days ago which has not improved. Patient does not follow with a web production artist, states that due to insurance reasons she has not followed up. She does take Plaquenil at home. Her last serious flare-up of lupus was roughly 3 years ago and at that time she did have hematuria and followed with a urologist. Patient states she may be having a flare-up, states that she has some bruising on her upper extremities as well as the overall pain, this is similar to what she has had in the past. Urology consulted for hematuria. She has a h/o renal stones, last time it was a long time ago. She states during her visits to ER recently she was told that has a 5mm stone. last CT w/con on 03/06 had no suspicious findings. She still c/o left flank and groin pain and well as N/V. Also has Upper GI / Epigastric pain and will have endoscopy today. Still has light pink urine color. No UTI. Labs are stable, except leukocytosis Review of Systems All other systems reviewed negative except as stated in HPI PMFSH - History History Provided By: Patient - Medical History Medical History: Medical History (Last Reviewed 03/07/18 @ 12:04 by Yumiko Sahni) H/O: hysterectomy Lupus - Surgical History Surgical History: Surgical History (Last Reviewed 03/07/18 @ 12:04 by Yumiko Sahni) Hx laparoscopic cholecystectomy - Family History Family History: Family History (Last Updated 03/07/18 @ 12:05 by Yumiko Sahni) Father Lupus (systemic lupus erythematosus) - Tobacco History Second Hand Smoke Exposure: No Tobacco Use In Past 30 Days: No (quit 2014) Smoking Status: Former smoker Tobacco Type: Cigarettes - Alcohol History How Often Do You Have a Drink Containing Alcohol: Monthly or less - Substance Use History Substance History: No History of Abuse - Travel History Recent Travel in the [place] Within the Last 8 Weeks: No Recent Travel Out of the Country Within the Last 8 Weeks: No - Immunization History Tetanus Immunization: <5 Years Medications and Allergies Active Medications: Active Medications Acetaminophen (Tylenol) 650 mg PO Q4H PRN PRN Reason: Temp > 100.4 Last Admin: 03/09/18 22:48 Dose: 650 mg Al Hydroxide/Mg Hydroxide (Milk Of Magnesia Liq) 30 ml PO Q12H PRN PRN Reason: Mild Constipation Last Admin: 03/09/18 02:07 Dose: 30 ml Bisacodyl (Dulcolax Supp) 10 mg RECTAL DAILY PRN PRN Reason: SEVERE CONSITIPATION Last Admin: 03/09/18 06:19 Dose: 10 mg Diphenhydramine HCl (Benadryl Inj) 25 mg IV.PUSH Q6H PRN PRN Reason: ITCHING Last Admin: 03/10/18 12:29 Dose: 25 mg Hydromorphone HCl (Dilaudid Pf Inj) 2 mg IV.PUSH Q4H PRN PRN Reason: SEVERE PAIN Last Admin: 03/10/18 10:13 Dose: 2 mg Hydroxychloroquine Sulfate (Plaquenil) 200 mg PO BID [facility] Last Admin: 03/10/18 08:08 Dose: 200 mg Sodium Chloride (Ns Inj) 1,000 mls @ 100 mls/hr IV.CONT .Q10H [facility] Last Admin: 03/10/18 10:24 Dose: 100 mls/hr Lactulose (Lactulose Liq) 30 ml PO DAILY PRN PRN Reason: SEVERE CONSITIPATION Levothyroxine Sodium (Synthroid) 25 mcg PO DAILY@0600 [facility] Last Admin: 03/10/18 05:08 Dose: 25 mcg Methylprednisolone Sodium Succinate (Solumedrol Inj) 40 mg IV.PUSH BID [facility] Last Admin: 03/10/18 08:10 Dose: 40 mg Ondansetron HCl (Zofran Inj) 4 mg IV.PUSH Q6H PRN PRN Reason: NAUSEA OR VOMITING Last Admin: 03/10/18 10:10 Dose: 4 mg Pantoprazole Sodium (Protonix Inj) 40 mg IV.PUSH Q24H [facility] Last Admin: 03/09/18 14:08 Dose: 40 mg Polyethylene Glycol (Miralax) 17 gm PO DAILY [facility] Last Admin: 03/10/18 08:09 Dose: 17 gm Senna/Docusate Sodium (Andreina-Colace) 1 tab PO BID [facility] Last Admin: 03/10/18 08:08 Dose: 1 tab Sennosides (Senokot) 17.2 mg PO Q12H PRN PRN Reason: Moderate Constipation Sodium Chloride (Ns Flush) 2 ml IV.FLUSH PRN PRN PRN Reason: FLUSH AFTER USING IV ACCESS Sodium Chloride (Ns Flush) 2 ml IV.FLUSH BID [facility] Last Admin: 03/10/18 08:10 Dose: 2 ml Sodium Chloride (Ns Flush) 2 ml IV.FLUSH PRN PRN PRN Reason: FLUSH AFTER USING IV ACCESS Sucralfate (Carafate) 1 gm PO BIDAC [facility] Last Admin: 03/10/18 08:08 Dose: 1 gm Allergies Allergy/AdvReac Type Severity Reaction Status Date / Time metoclopramide [From Reglan] Allergy Severe Anxiety Verified 03/07/18 08:51 prochlorperazine Allergy Anxiety Verified 03/07/18 10:40 [From Compazine] ketorolac [From Toradol] AdvReac Intermediate Hives Verified 03/07/18 08:51 Home Medications Medication Instructions Recorded Confirmed Type hydroxychloroquine [Plaquenil] 200 mg PO BID 03/02/18 03/07/18 History levothyroxine [Synthroid] 25 mcg PO DAILY 03/02/18 03/07/18 History Physical Exam Vital Signs - 24 hr 03/09/18 16:00 03/09/18 20:00 03/09/18 23:09 Temperature 97.7 F 99.1 F 102.9 F H Pulse Rate 84 78 Respiratory Rate 18 16 Blood Pressure 131/78 120/74 Pulse Oximetry 96 99 03/10/18 00:00 03/10/18 04:00 03/10/18 08:00 Temperature 100.7 F H 98.2 F 98.6 F Pulse Rate 72 67 55 L Respiratory Rate 18 16 17 Blood Pressure 131/70 117/68 138/80 Pulse Oximetry 93 L 96 94 L 03/10/18 11:47 03/10/18 12:00 Temperature 100.7 F H Pulse Rate 68 64 Respiratory Rate 17 Blood Pressure 178/95 H Pulse Oximetry 92 L Physical Exam: GENERAL: This is a well-nourished, well-developed patient, in no apparent distress. SKIN: No rashes, ecchymoses or lesions. Cool and dry. HEAD: Atraumatic. Normocephalic. CARDIOVASCULAR: Regular rate and rhythm without murmurs, gallops, or rubs. RESPIRATORY: Clear to auscultation. Breath sounds equal bilaterally. No wheezes , rales, or rhonchi. GASTROINTESTINAL: Abdomen soft, non-tender, nondistended. GENITOURINARY: No CVAT MUSCULOSKELETAL: Extremities without clubbing, cyanosis, or edema. N NEUROLOGICAL: Awake and alert. . Laboratory Results - last 24 hr 03/09/18 03/10/18 03/10/18 14:30 06:05 12:00 CBC w Diff WBC RBC Hgb Hct MCV MCH MCHC RDW Plt Count MPV Neut % (Auto) Lymph % (Auto) [place] % (Auto) Eos % (Auto) Baso % (Auto) Neut # (Auto) Lymph # (Auto) [place] # (Auto) Eos # (Auto) Baso # (Auto) Differential Comment Sodium 141 Potassium 4.4 Chloride 105 Carbon Dioxide 28.9 Anion Gap 7 BUN 9 Creatinine 0.64 Estimated GFR Greater than 89 Random Glucose 138 H Calcium 7.8 L Total Bilirubin 0.4 0.5 Direct Bilirubin 0.1 0.1 Indirect Bilirubin 0.3 0.4 AST 56 H 17 ALT 66 H 45 Alkaline Phosphatase 72 49 C-Reactive Protein Total Protein 7.1 6.4 D Albumin 3.6 3.3 L Lipase 91 58 L Ur Collection Type Clean catch Urine Color [place] Urine Clarity Slightly cloudy Urine pH 7.5 Ur Specific [place] 1.010 Urine Protein Negative Urine Glucose (UA) Negative Urine Ketones Negative Urine Occult Blood Large H Urine Nitrate Negative Urine Bilirubin Negative Urine Urobilinogen 0.2 Ur Leukocyte Esterase Negative Urine RBC 51-189 H Urine WBC 0-5 Micro UA Comment Culture not ind Ur Microscopic Review Microscopic reviewed Urine Culture Comments Culture not ind 03/10/18 03/10/18 12:43 12:43 CBC w Diff Slide review pending WBC 15.7 H RBC 3.36 L Hgb 10.7 L Hct 31.8 L MCV 94.6 MCH 31.9 MCHC 33.8 RDW 13.6 Plt Count 257 MPV 8.2 Neut % (Auto) 89.2 H Lymph % (Auto) 5.7 L [place] % (Auto) 4.1 Eos % (Auto) 0.1 Baso % (Auto) 0.9 Neut # (Auto) 14.1 H Lymph # (Auto) 0.9 L [place] # (Auto) 0.6 Eos # (Auto) 0.0 Baso # (Auto) 0.1 Differential Comment . Sodium Potassium Chloride Carbon Dioxide Anion Gap BUN Creatinine Estimated GFR Random Glucose Calcium Total Bilirubin Direct Bilirubin Indirect Bilirubin AST ALT Alkaline Phosphatase C-Reactive Protein 2.70 H Total Protein Albumin Lipase Ur Collection Type Urine Color Urine Clarity Urine pH Ur Specific [place] Urine Protein Urine Glucose (UA) Urine Ketones Urine Occult Blood Urine Nitrate Urine Bilirubin Urine Urobilinogen Ur Leukocyte Esterase Urine RBC Urine WBC Micro UA Comment Ur Microscopic Review Urine Culture Comments Microbiology 03/10/18 12:10 Influenza Types A,B Antigen - Final Nasal Wash Negative for FLU A and B antigen Infection due to influenza A or B cannot be ruled out since the antigen present in the sample may be below the detection limit of the test. Result Diagrams: 03/10/18 12:43 03/10/18 06:05 Assessment and Plan - Plan 37y.o F with h/o as per HPI - Continue care as per primary team - GI eval is pending - Renal US to r/o obstruction, if normal sonogram needs cystoscopy as outpt if any abnormal findings we will provide additional recommendations. - Lupus nephritis might need to be r/o as well. Discussed Condition With: Dr Blanche XIONG attending
[2018-03-10 13:59] LABS: Platelet Estimate Normal (Normal); Platelet Morphology Normal (Normal); Toxic Granulation 1+
[2018-03-10] MEDS: Pantoprazole Inj 40 MG Vial IV.PUSH SCH (14:21)
--- NOTE | 2018-03-10 15:01 | CT ---
EXAM DATE: 03/10/2018 2:43 PM EST AGE/SEX: 37 years / Female INDICATIONS: Intractable abdominal pain and fever. CLINICAL DATA: This is the patient's initial encounter. Patient reports that signs and symptoms have been present for 3 days and indicates a pain score of 7/10. MEDICAL/SURGICAL HISTORY: Lupus. Hysterectomy. Cholecystectomy. RADIATION DOSE: 14.65 CTDI (mGy) COMPARISON: [facility], CT ABDOMEN & PELVIS W CONTRAST, 03/06/2018. [facility], CT ABDOMEN & PELVIS W/O CONTR AST, 03/02/2018. . TECHNIQUE: Multiple contiguous axial images were obtained through the abdomen. Images were obtained using multiple row detector helical technique. Using automated exposure control and adjustment of the mA and/or kV according to patient size, radiation dose was kept as low as reasonably achievable to o btain optimal diagnostic quality images. DICOM format image data is available electronically for rev iew and comparison. FINDINGS: Lower Lungs: Small right pleural effusion and tiny left pleural effusion are noted. Minimal patchy de nsities are noted within the lung bases consistent with atelectasis and/or infiltrates. Liver: Hepatomegaly is noted. The liver has a homogeneous density without space-occupying lesion. The re is no dilation of the biliary tree. Spleen: Homogeneous density without enlargement. Pancreas: Unremarkable without mass or calcification. Kidneys: Normal in size and shape. No evidence of mass or hydronephrosis. Tiny 1 mm calcified nonobs tructing mid pole right renal calculus is noted. Adrenal Glands: Unremarkable. Aorta: The aorta and proximal iliac vessels are grossly unremarkable without aneurysmal dilation. Bowel/Mesentery: The bowel loops are grossly unremarkable. The cecum and sigmoid colon have a normal configuration. Abdominal Wall: Anasarca is noted. Retroperitoneum: No evidence of adenopathy in the retrocrural, para-aortic, or deep pelvic regions. Bladder: Contours are smooth. Reproductive Organs: No abnormal masses or calcifications seen. Inguinal: The inguinal region is unremarkable without evidence of adenopathy. Bony Structures: Mild scoliosis and degenerative changes of the lumbar spine are noted. CONCLUSION: 1. Mild bibasilar patchiness consistent with atelectasis and/or infiltrates. Clinical correlation is recommended. 2. Small right pleural effusion and tiny left pleural effusion. 3. Anasarca. 4. Hepatomegaly. 5. Tiny 1 mm calcified nonobstructing mid pole right renal calculus. 6. Mild scoliosis and degenerative changes of the lumbar spine. Electronically signed by: Pato Valenzuela MD Board Certified Radiologist 03/10/2018 2:59 PM EST
--- NOTE | 2018-03-10 15:15 | XR ---
EXAM DATE: 03/10/2018 2:55 PM EST AGE/SEX: 37 years / Female INDICATIONS: . Febrile illness. CLINICAL DATA: This is the patient's initial encounter. Patient reports that signs and symptoms have been present for 2 weeks and indicates a pain score of 5/10. MEDICAL/SURGICAL HISTORY: Lupus. Hysterectomy. Cholecystectomy. COMPARISON: No prior exams available for comparison. FINDINGS: PA and lateral views of the chest demonstrate the lungs to be symmetrically aerated with some atelect atic changes identified in the left lung base. Blunting of the right lateral and posterior costophren ic angles may represent a small effusion. Lungs are otherwise clear. Heart size is normal. Osseous st ructures are intact. CONCLUSION: 1. Probable small right-sided pleural effusion with blunting of the lateral and posterior costophren ic angles. 2. Mild atelectatic changes laterally in the left lung base. Electronically signed by: Eder Marshall MD Board Certified Radiologist 03/10/2018 3:14 PM EST
--- NOTE | 2018-03-10 18:08 | P.CONGI ---
History of Present Illness Consult reason: Abdominal pain Chief complaint: Intractable abdominal pain, hematuri, lupus History of Present Illness: Patient is a 37-year-old female who has been having symptoms of abdominal pain for the last 5-7 days. She describes this as severe noncolicky pain located both in the upper and lower quadrant at times radiating to the back and legs. There is history of nausea. She denies any vomiting heartburn dysphagia constipation diarrhea hematemesis melena hematochezia jaundice ascites edema anorexia or weight loss. Review of Systems Constitutional: Reports fever(s) Gastrointestinal: Reports abdominal pain, Reports nausea Genitourinary: Reports blood in urine PMFSH - History History Provided By: Patient - Medical History Medical History: Medical History (Last Reviewed 03/07/18 @ 12:04 by Yumiko Sahni) H/O: hysterectomy Lupus - Surgical History Surgical History: Surgical History (Last Reviewed 03/07/18 @ 12:04 by Yumiko Sahni) Hx laparoscopic cholecystectomy - Family History Family History: Family History (Last Updated 03/07/18 @ 12:05 by Yumiko Sahni) Father Lupus (systemic lupus erythematosus) - Tobacco History Second Hand Smoke Exposure: No Tobacco Use In Past 30 Days: No (quit 2014) Smoking Status: Former smoker Tobacco Type: Cigarettes - Alcohol History How Often Do You Have a Drink Containing Alcohol: Monthly or less - Substance Use History Substance History: No History of Abuse - Travel History Recent Travel in the [place] Within the Last 8 Weeks: No Recent Travel Out of the Country Within the Last 8 Weeks: No - Immunization History Tetanus Immunization: <5 Years Medications and Allergies Active Medications: Active Medications Acetaminophen (Tylenol) 650 mg PO Q4H PRN PRN Reason: Temp > 100.4 Last Admin: 03/09/18 22:48 Dose: 650 mg Al Hydroxide/Mg Hydroxide (Milk Of Magnesia Liq) 30 ml PO Q12H PRN PRN Reason: Mild Constipation Last Admin: 03/09/18 02:07 Dose: 30 ml Bisacodyl (Dulcolax Supp) 10 mg RECTAL DAILY PRN PRN Reason: SEVERE CONSITIPATION Last Admin: 03/09/18 06:19 Dose: 10 mg Diphenhydramine HCl (Benadryl Inj) 25 mg IV.PUSH Q6H PRN PRN Reason: ITCHING Last Admin: 03/10/18 12:29 Dose: 25 mg Hydromorphone HCl (Dilaudid Pf Inj) 2 mg IV.PUSH Q4H PRN PRN Reason: SEVERE PAIN Last Admin: 03/10/18 14:24 Dose: 2 mg Hydroxychloroquine Sulfate (Plaquenil) 200 mg PO BID [facility] Last Admin: 03/10/18 08:08 Dose: 200 mg Sodium Chloride (Ns Inj) 1,000 mls @ 100 mls/hr IV.CONT .Q10H [facility] Last Admin: 03/10/18 10:24 Dose: 100 mls/hr Lactulose (Lactulose Liq) 30 ml PO DAILY PRN PRN Reason: SEVERE CONSITIPATION Levothyroxine Sodium (Synthroid) 25 mcg PO DAILY@0600 [facility] Last Admin: 03/10/18 05:08 Dose: 25 mcg Methylprednisolone Sodium Succinate (Solumedrol Inj) 40 mg IV.PUSH BID [facility] Last Admin: 03/10/18 08:10 Dose: 40 mg Ondansetron HCl (Zofran Inj) 4 mg IV.PUSH Q6H PRN PRN Reason: NAUSEA OR VOMITING Last Admin: 03/10/18 10:10 Dose: 4 mg Pantoprazole Sodium (Protonix Inj) 40 mg IV.PUSH Q24H [facility] Last Admin: 03/10/18 14:21 Dose: 40 mg Polyethylene Glycol (Miralax) 17 gm PO DAILY [facility] Last Admin: 03/10/18 08:09 Dose: 17 gm Senna/Docusate Sodium (Andreina-Colace) 1 tab PO BID [facility] Last Admin: 03/10/18 08:08 Dose: 1 tab Sennosides (Senokot) 17.2 mg PO Q12H PRN PRN Reason: Moderate Constipation Sodium Chloride (Ns Flush) 2 ml IV.FLUSH PRN PRN PRN Reason: FLUSH AFTER USING IV ACCESS Sodium Chloride (Ns Flush) 2 ml IV.FLUSH BID [facility] Last Admin: 03/10/18 08:10 Dose: 2 ml Sodium Chloride (Ns Flush) 2 ml IV.FLUSH PRN PRN PRN Reason: FLUSH AFTER USING IV ACCESS Sucralfate (Carafate) 1 gm PO BIDAC [facility] Last Admin: 03/10/18 16:48 Dose: 1 gm Allergies Allergy/AdvReac Type Severity Reaction Status Date / Time metoclopramide [From Reglan] Allergy Severe Anxiety Verified 03/07/18 08:51 prochlorperazine Allergy Anxiety Verified 03/07/18 10:40 [From Compazine] ketorolac [From Toradol] AdvReac Intermediate Hives Verified 03/07/18 08:51 Home Medications Medication Instructions Recorded Confirmed Type hydroxychloroquine [Plaquenil] 200 mg PO BID 03/02/18 03/07/18 History levothyroxine [Synthroid] 25 mcg PO DAILY 03/02/18 03/07/18 History Exam Vital signs: Vital Signs 03/09/18 20:00 03/09/18 23:09 03/10/18 00:00 Temperature 99.1 F 102.9 F H 100.7 F H Pulse Rate 78 72 Respiratory Rate 16 18 Blood Pressure 120/74 131/70 Pulse Oximetry 99 93 L 03/10/18 04:00 03/10/18 08:00 03/10/18 11:47 Temperature 98.2 F 98.6 F 100.7 F H Pulse Rate 67 55 L 68 Respiratory Rate 16 17 17 Blood Pressure 117/68 138/80 178/95 H Pulse Oximetry 96 94 L 92 L 03/10/18 12:00 03/10/18 16:00 Temperature 99.7 F H Pulse Rate 64 69 Respiratory Rate 16 Blood Pressure 152/77 H Pulse Oximetry 95 Intake & Output 03/09/18 03/10/18 03/10/18 18:59 06:59 18:59 Intake Total 1000 / 1000 1000 / 1000 1000 / 1000 Balance 1000 / 1000 1000 / 1000 1000 / 1000 Weight 82.8 kg Intake: IV 1000 / 1000 1000 / 1000 1000 / 1000 NS Inj 1,000 ML @ 100 mls/hr IV 1000 / 1000 1000 / 1000 1000 / 1000 .CONT .Q10H [facility] Rx#:[id number] Other: # Voids 6 Date of Last Bowel Movement 03/08/18 03/08/18 03/08/18 # Bowel Movements 1 - Routine Abdominal Exam Present: soft, tenderness Comments: No guarding no rigidity no masses palpable liver spleen not enlarged no ascites bowel sounds normal Results - Labs CBC & Chem 7: 03/10/18 12:43 03/10/18 06:05 Labs: Laboratory Results - last 24 hr 03/10/18 03/10/18 03/10/18 06:05 12:00 12:43 CBC w Diff WBC RBC Hgb Hct MCV MCH MCHC RDW Plt Count MPV Neut % (Auto) Lymph % (Auto) [place] % (Auto) Eos % (Auto) Baso % (Auto) Neut # (Auto) Lymph # (Auto) [place] # (Auto) Eos # (Auto) Baso # (Auto) WBC Differential Differential Comment Toxic Granulation Platelet Estimate Platelet Morphology ESR 22 H Sodium 141 Potassium 4.4 Chloride 105 Carbon Dioxide 28.9 Anion Gap 7 BUN 9 Creatinine 0.64 Estimated GFR Greater than 89 Random Glucose 138 H Calcium 7.8 L Total Bilirubin 0.5 Direct Bilirubin 0.1 Indirect Bilirubin 0.4 AST 17 ALT 45 Alkaline Phosphatase 49 C-Reactive Protein Total Protein 6.4 D Albumin 3.3 L Lipase 58 L Ur Collection Type Clean catch Urine Color [place] Urine Clarity Slightly cloudy Urine pH 7.5 Ur Specific [place] 1.010 Urine Protein Negative Urine Glucose (UA) Negative Urine Ketones Negative Urine Occult Blood Large H Urine Nitrate Negative Urine Bilirubin Negative Urine Urobilinogen 0.2 Ur Leukocyte Esterase Negative Urine RBC 51-189 H Urine WBC 0-5 Micro UA Comment Culture not ind Ur Microscopic Review Microscopic reviewed Urine Culture Comments Culture not ind 03/10/18 03/10/18 12:43 12:43 CBC w Diff Slide review pending WBC 15.7 H RBC 3.36 L Hgb 10.7 L Hct 31.8 L MCV 94.6 MCH 31.9 MCHC 33.8 RDW 13.6 Plt Count 257 MPV 8.2 Neut % (Auto) 89.2 H Lymph % (Auto) 5.7 L [place] % (Auto) 4.1 Eos % (Auto) 0.1 Baso % (Auto) 0.9 Neut # (Auto) 14.1 H Lymph # (Auto) 0.9 L [place] # (Auto) 0.6 Eos # (Auto) 0.0 Baso # (Auto) 0.1 WBC Differential Manual diff final Differential Comment . Toxic Granulation 1+ H Platelet Estimate Normal Platelet Morphology Normal ESR Sodium Potassium Chloride Carbon Dioxide Anion Gap BUN Creatinine Estimated GFR Random Glucose Calcium Total Bilirubin Direct Bilirubin Indirect Bilirubin AST ALT Alkaline Phosphatase C-Reactive Protein 2.70 H Total Protein Albumin Lipase Ur Collection Type Urine Color Urine Clarity Urine pH Ur Specific [place] Urine Protein Urine Glucose (UA) Urine Ketones Urine Occult Blood Urine Nitrate Urine Bilirubin Urine Urobilinogen Ur Leukocyte Esterase Urine RBC Urine WBC Micro UA Comment Ur Microscopic Review Urine Culture Comments - Imaging Impressions Abdomen/Pelvis CT 03/10/18 00:00 CONCLUSION: 1. Mild bibasilar patchiness consistent with atelectasis and/or infiltrates. Clinical correlation is recommended. 2. Small right pleural effusion and tiny left pleural effusion. 3. Anasarca. 4. Hepatomegaly. 5. Tiny 1 mm calcified nonobstructing mid pole right renal calculus. 6. Mild scoliosis and degenerative changes of the lumbar spine. Chest X-Ray 03/10/18 00:00 CONCLUSION: 1. Probable small right-sided pleural effusion with blunting of the lateral and posterior costophrenic angles. 2. Mild atelectatic changes laterally in the left lung base. Assessment and Plan - Plan 1. Severe abdominal pain, abdominal conditions to explain the symptoms include peptic ulcer disease, GERD celiac disease and inflammatory bowel disease. Vasculitis is a remote possibility. 2. Labs-TSH, 3. EGD and colonoscopy 4. Protonix 40 mg IV twice daily
[2018-03-10] MEDS: Acetaminophen 325 MG Tablet PO PRN (21:34)
[2018-03-11] MEDS: Sod Chloride 0.9% Inj 1,000 ML IV.CONT SCH ×5 (00:37→22:30)
[2018-03-11] MEDS: Pantoprazole Inj 40 MG Vial IV.PUSH SCH ×2 (02:32→14:36)
[2018-03-11] MEDS: HYDROmorphone PF Inj 2 MG/ML Vial IV.PUSH PRN ×6 (02:34→22:30)
[2018-03-11 07:00] LABS: Baso # (Auto) 0.2 th/mm3 (0.0-0.2); Baso % (Auto) 2.2 % (0.0-2.0); Eos % (Auto) 0.1 % (0.0-4.0); Hematocrit 29.9 % (35.0-46.0); Hemoglobin 10.4 gm/dL (11.6-15.3); Lymph % (Auto) 8.9 % (9.0-44.0); Mean Corpuscular HGB Conc 34.7 % (32.0-36.0); Mean Corpuscular Hemoglobin 32.5 pg (27.0-34.0); Mean Corpuscular Volume 93.8 fL (80.0-100.0); Mean Platelet Volume 8.1 fL (7.0-11.0); Mono # (Auto) 0.5 th/mm3 (0.0-0.9); Mono % (Auto) 4.8 % (0.0-8.0); Neut # (Auto) 9.1 th/mm3 (1.8-7.7); Platelet Count 241 th/mm3 (150-450); Red Blood Count 3.19 mil/mm3 (4.00-5.30); Red Cell Distribution Width 12.8 % (11.6-17.2); White Blood Count 10.8 th/mm3 (4.0-11.0)
[2018-03-11 07:07] LABS: Chloride 106 meq/L (98-107); Sodium 141 meq/L (136-145)
[2018-03-11 07:11] LABS: Anion Gap 7 meq/L (5-15); Blood Urea Nitrogen 10 mg/dL (7-18); Calcium 7.8 mg/dL (8.5-10.1); Carbon Dioxide 28.5 meq/L (21.0-32.0); Glucose,Random 130 mg/dL (74-106)
[2018-03-11 07:14] LABS: Alanine Aminotransferase 35 U/L (10-53); Aspartate Aminotransferase 10 U/L (15-37); Glomerular Filtration Rate Greater Than 89 mL/min (>89)
[2018-03-11 07:16] LABS: Total Protein 6.2 g/dL (6.4-8.2)
[2018-03-11 07:17] LABS: Alkaline Phosphatase 50 U/L (45-117)
[2018-03-11 07:25] LABS: Thyroid Stimulating Hormone 0.498 uIU/mL (0.358-3.740)
[2018-03-11] MEDS ORDERED: PEG 3350/E-Lyte Soln 4000 ML Bottle PO ONE (09:00)
[2018-03-11] MEDS: MethylPREDNISolone Sod Succinate Inj 125 MG/2 ML Vial IV.PUSH SCH ×2 (09:54→20:53)
[2018-03-11] MEDS: Sucralfate 1 GM Tablet PO SCH ×2 (09:54→17:56)
[2018-03-11] MEDS: Hydroxychloroquine 200 MG Tablet PO SCH ×2 (09:54→20:53)
[2018-03-11] MEDS: Senna/Docusate Sodium 8.6/50 MG Tablet PO SCH ×2 (09:55→20:48)
[2018-03-11] MEDS: Polyethylene Glycol 3350 17 GM Packet PO SCH (09:55)
--- NOTE | 2018-03-11 13:19 | P.PNIM ---
Subjective Interval history: 37-year-old female who is seen examined today for follow-up on abdominal discomfort. Patient states that she still had abdominal pain. Workup does not indicate any acute abnormality. Imaging Technician plans for endoscopy tomorrow morning. Patient undergoing prep at this time. Vital signs are stable, T-max 100.2 Physical Exam Vital signs: Vital Signs 03/10/18 16:00 03/10/18 20:00 03/10/18 22:48 Temperature 99.7 F H 101.3 F H 101.5 F H Pulse Rate 69 80 Respiratory Rate 16 18 Blood Pressure 152/77 H 139/77 Pulse Oximetry 95 96 03/11/18 00:00 03/11/18 07:07 03/11/18 08:00 Temperature 100.2 F H 97.4 F L Pulse Rate 84 79 Respiratory Rate 18 18 18 Blood Pressure 132/71 134/76 Pulse Oximetry 93 L 97 03/11/18 10:34 03/11/18 12:00 Temperature 97.6 F Pulse Rate 72 Respiratory Rate 18 18 Blood Pressure 134/78 Pulse Oximetry 99 Intake & Output 03/10/18 03/11/18 03/11/18 18:59 06:59 18:59 Intake Total 1000 / 1000 1000 / 1000 1300 / 1300 Balance 1000 / 1000 1000 / 1000 1300 / 1300 Intake: IV 1000 / 1000 1000 / 1000 1000 / 1000 NS Inj 1,000 ML @ 100 mls/hr IV 1000 / 1000 1000 / 1000 1000 / 1000 .CONT .Q10H [facility]LEX Rx#:[id number] Oral 300 / 300 Other: # Voids 1 Date of Last Bowel Movement 03/08/18 03/10/18 Narrative: GENERAL: Well-developed, well-nourished, in no acute distress. alert and orientated HEENT: Head is normocephalic without any lesions or masses noted. Facial features are symmetric. Eyes: Extraocular muscles are intact. Conjunctivae were clear. NECK: Supple without any masses. Trachea midline no deviation. No JVD, CARDIAC: Regular rhythm, regular rate. S1/S2 are heard. No murmurs gallops or rubs. LUNGS: Clear to auscultation bilaterally. No wheeze, rhonchi or rales. No use of accessory muscles on inspiration or expiration. ABDOMEN: Soft, nontender. Diffuse abdominal pain. Bowel sounds heard in all 4 quadrants. No organomegaly or masses. Negative rebound, negative guarding EXTREMITIES: No edema, pulses are equal bilaterally. No cyanosis or clubbing NEUROLOGY: Mood and affect appear appropriate. Cranial nerves II through XII grossly intact. Moving all extremities, speech is clear Results - Labs CBC & Chem 7: 03/11/18 06:20 03/11/18 06:20 Laboratory Results - last 24 hr 03/10/18 03/10/18 03/10/18 12:43 12:43 12:43 CBC w Diff WBC RBC Hgb Hct MCV MCH MCHC RDW Plt Count MPV Neut % (Auto) Lymph % (Auto) [place] % (Auto) Eos % (Auto) Baso % (Auto) Neut # (Auto) Lymph # (Auto) [place] # (Auto) Eos # (Auto) Baso # (Auto) WBC Differential Manual diff final Differential Comment Toxic Granulation 1+ H Platelet Estimate Normal Platelet Morphology Normal ESR 22 H Sodium Potassium Chloride Carbon Dioxide Anion Gap BUN Creatinine Estimated GFR Random Glucose Calcium Total Bilirubin AST ALT Alkaline Phosphatase Total Protein Albumin TSH 0.445 03/11/18 03/11/18 06:20 06:20 CBC w Diff Auto diff final WBC 10.8 RBC 3.19 L Hgb 10.4 L Hct 29.9 L MCV 93.8 MCH 32.5 MCHC 34.7 RDW 12.8 Plt Count 241 MPV 8.1 Neut % (Auto) 84.0 H Lymph % (Auto) 8.9 L [place] % (Auto) 4.8 Eos % (Auto) 0.1 Baso % (Auto) 2.2 H Neut # (Auto) 9.1 H Lymph # (Auto) 1.0 [place] # (Auto) 0.5 Eos # (Auto) 0.0 Baso # (Auto) 0.2 WBC Differential . Differential Comment . Toxic Granulation Platelet Estimate Platelet Morphology ESR Sodium 141 Potassium 4.0 Chloride 106 Carbon Dioxide 28.5 Anion Gap 7 BUN 10 Creatinine 0.66 Estimated GFR Greater than 89 Random Glucose 130 H Calcium 7.8 L Total Bilirubin 0.7 AST 10 L ALT 35 Alkaline Phosphatase 50 Total Protein 6.2 L Albumin 3.0 L TSH 0.498 Microbiology 03/10/18 12:43 Blood - Peripheral Aerobic Blood Culture - Preliminary No growth in 1 day 03/10/18 12:43 Blood - Peripheral Anaerobic Blood Culture - Preliminary No growth in 1 day 03/10/18 12:33 Blood - Peripheral Aerobic Blood Culture - Preliminary No growth in 1 day 03/10/18 12:33 Blood - Peripheral Anaerobic Blood Culture - Preliminary No growth in 1 day 03/10/18 12:10 Nasal Wash Influenza Types A,B Antigen - Final Negative for FLU A and B antigen Infection due to influenza A or B cannot be ruled out since the antigen present in the sample may be below the detection limit of the test. - Imaging Impressions Abdomen/Pelvis CT 03/10/18 00:00 CONCLUSION: 1. Mild bibasilar patchiness consistent with atelectasis and/or infiltrates. Clinical correlation is recommended. 2. Small right pleural effusion and tiny left pleural effusion. 3. Anasarca. 4. Hepatomegaly. 5. Tiny 1 mm calcified nonobstructing mid pole right renal calculus. 6. Mild scoliosis and degenerative changes of the lumbar spine. Chest X-Ray 03/10/18 00:00 CONCLUSION: 1. Probable small right-sided pleural effusion with blunting of the lateral and posterior costophrenic angles. 2. Mild atelectatic changes laterally in the left lung base. Assessment and Plan - Assessment (1) Intractable abdominal pain Code(s): R10.9 - Unspecified abdominal pain Status: Acute (2) Hematuria Code(s): R31.9 - Hematuria, unspecified Status: Acute (3) Lupus (systemic lupus erythematosus) Code(s): M32.9 - Systemic lupus erythematosus, unspecified Status: Acute - Plan Nonspecific abdominal pain, persistent Nausea and vomiting. Resolved -possible constipation vs gastroenteritis vs SLE flare. -Abdominal/pelvis CT was unremarkable kidneys and urinary bladder. No inflammatory change. Moderate amount of stool present. -CBC and BMP unremarkable. Urinalysis without any signs of infection -Continue IVF to ensure hydration. -Pain control with IV Dilaudid as needed per pain scale. -Antiemetics as needed. -Patient tolerating liquid diet -Imaging Technician was consulted who is recommending EGD/colonoscopy tomorrow morning Febrile illness -Unknown etiology at this time, -Influenza testing was negative -Blood cultures are negative for 1 day -Chest x-ray showing probable small right pleural effusion, mild atelectatic changes laterally in the left lung -CT of the abdomen and pelvis shows mild bibasilar patchiness consistent with atelectasis, small right pleural effusion, anasarca, hepatomegaly, 1 mm calcified nonobstructing right renal calculi -Urinalysis does not indicate any signs of infection Hematuria. Improving -Complaints of hematuria x 4 days. -UA negative for infection. -Urology consulted for further recommendations -Awaiting renal bladder ultrasound Atypical chest pain. Resolved History of bradycardia -Could have been secondary to a lupus flare -Patient ruled out for any cardiac etiology with serial cardiac enzymes remain negative, serial EKGs without any changes History of systemic lupus erythema Possible flare, improving. -Patient does complain of upper thigh bruising, says this is typical for her when she is having a flare. -LDH, reticulocyte count and haptoglobin all within normal limits. -Sed rate, C-reactive protein have mild elevations. Awaiting TUCKER -H&H stable. Platelets stable. -Continue steroids at this time Hypothyroidism, chronic -Continue home Synthroid. DVT prophylaxis: -Low risk, ambulation (2) Hematuria Qualifiers: Hematuria type: gross Qualified Code(s): R31.0 - Gross hematuria (3) Lupus (systemic lupus erythematosus) Qualifiers: Systemic lupus erythematosus type: unspecified Systemic lupus erythematosus organ involvement: unspecified Qualified Code(s): M32.9 - Systemic lupus erythematosus, unspecified
--- NOTE | 2018-03-11 14:19 | US ---
EXAM DATE: 03/11/2018 1:59 PM EST AGE/SEX: 37 years / Female INDICATIONS: Hematuria. Abdominal pain. Tiny less than 1 mm nonobstructing right renal calculus seen on CT. CLINICAL DATA: This is the patient's initial encounter. Patient reports that signs and symptoms have been present for 1 week and indicates a pain score of 4/10. MEDICAL/SURGICAL HISTORY: Lupus. Hypothyroidism. Cholecystectomy. Hysterectomy. COMPARISON: [facility], CT ABDOMEN & PELVIS W/O CONTRAST, 03/10/2018. . MEASUREMENTS: Right Kidney:__12.0 x 5.1 x 5.9 cm Left Kidney:__11.7 x 6.2 x 5.6 cm FINDINGS: Right Kidney: Normal echogenicity and cortical thickness. No mass or hydronephrosis. Left Kidney: Normal echogenicity and cortical thickness. No mass or hydronephrosis. Bladder: Within normal limits given the degree of distension. Other: The liver is again noted to be prominent as seen on the CT. A small left pleural effusion is noted. CONCLUSION: 1. The kidneys are unremarkable in appearance with no focal lesion or hydronephrosis. The tiny less than 1 mm nonobstructing right renal calculus seen on CT is not visualized. 2. The liver is again noted to be prominent. 3. Small left pleural effusion. Electronically signed by: Alhaji Valentin MD Board Certified Radiologist 03/11/2018 2:17 PM EST
[2018-03-12] MEDS: Sod Chloride 0.9% Inj 1,000 ML IV.CONT SCH ×3 (02:32→12:29)
[2018-03-12] MEDS: Pantoprazole Inj 40 MG Vial IV.PUSH SCH ×2 (02:34→14:16)
[2018-03-12] MEDS: HYDROmorphone PF Inj 2 MG/ML Vial IV.PUSH PRN ×4 (02:35→14:16)
[2018-03-12] MEDS: Hydroxychloroquine 200 MG Tablet PO SCH ×2 (07:49→08:03)
[2018-03-12] MEDS: Sucralfate 1 GM Tablet PO SCH (07:49)
[2018-03-12] MEDS: MethylPREDNISolone Sod Succinate Inj 125 MG/2 ML Vial IV.PUSH SCH ×2 (07:50→08:03)
[2018-03-12] MEDS: Senna/Docusate Sodium 8.6/50 MG Tablet PO SCH (08:02)
[2018-03-12] MEDS: Polyethylene Glycol 3350 17 GM Packet PO SCH (08:02)
[2018-03-12 08:57] VITALS: RESP 16
--- NOTE | 2018-03-12 08:57 | P.PNIM ---
Subjective Interval history: 37-year-old female who is seen examined today for follow-up on intractable abdominal pain. Patient is waiting to undergo endoscopy per patient states that she still experiencing the upper abdominal discomfort. Vital signs are stable. Patient now afebrile. Physical Exam Vital signs: Vital Signs 03/11/18 10:34 03/11/18 12:00 03/11/18 15:07 Temperature 97.6 F Pulse Rate 72 Respiratory Rate 18 18 18 Blood Pressure 134/78 Pulse Oximetry 99 03/11/18 16:00 03/11/18 18:57 03/11/18 20:00 Temperature 97.4 F L 98.3 F Pulse Rate 61 65 Respiratory Rate 18 18 20 Blood Pressure 136/66 122/66 Pulse Oximetry 98 97 03/12/18 00:00 Temperature 97.9 F Pulse Rate 78 Respiratory Rate 20 Blood Pressure 115/63 Pulse Oximetry 97 Intake & Output 03/11/18 03/12/18 03/12/18 18:59 06:59 18:59 Intake Total 1300 / 1300 1000 / 1000 Balance 1300 / 1300 1000 / 1000 Weight 82.8 kg 80.8 kg Intake: IV 1000 / 1000 1000 / 1000 NS Inj 1,000 ML @ 100 mls/hr IV 1000 / 1000 1000 / 1000 .CONT .Q10H [facility]LEX Rx#:[id number] Oral 300 / 300 Other: # Voids 1 3 Date of Last Bowel Movement 03/11/18 03/12/18 # Bowel Movements 5 Narrative: GENERAL: Well-developed, well-nourished, in no acute distress. alert and orientated HEENT: Head is normocephalic without any lesions or masses noted. Facial features are symmetric. Eyes: Extraocular muscles are intact. CARDIAC: Regular rhythm, regular rate. S1/S2 are heard. No murmurs gallops or rubs. LUNGS: Clear to auscultation bilaterally. No wheeze, rhonchi or rales. No use of accessory muscles on inspiration or expiration. ABDOMEN: Soft, nontender. Diffuse abdominal pain. Bowel sounds heard in all 4 quadrants. No organomegaly or masses. Negative rebound, negative guarding EXTREMITIES: No edema, pulses are equal bilaterally. No cyanosis or clubbing NEUROLOGY: Mood and affect appear appropriate. Cranial nerves II through XII grossly intact. Moving all extremities, speech is clear Results - Labs CBC & Chem 7: 03/11/18 06:20 03/11/18 06:20 Microbiology 03/10/18 12:43 Blood - Peripheral Aerobic Blood Culture - Preliminary No growth in 1 day 03/10/18 12:43 Blood - Peripheral Anaerobic Blood Culture - Preliminary No growth in 1 day 03/10/18 12:33 Blood - Peripheral Aerobic Blood Culture - Preliminary No growth in 1 day 03/10/18 12:33 Blood - Peripheral Anaerobic Blood Culture - Preliminary No growth in 1 day - Imaging Impressions Abdomen/Bladder Ultrasound 03/11/18 13:13 CONCLUSION: 1. The kidneys are unremarkable in appearance with no focal lesion or hydronephrosis. The tiny less than 1 mm nonobstructing right renal calculus seen on CT is not visualized. 2. The liver is again noted to be prominent. 3. Small left pleural effusion. Assessment and Plan - Assessment (1) Intractable abdominal pain Code(s): R10.9 - Unspecified abdominal pain Status: Acute (2) Hematuria Code(s): R31.9 - Hematuria, unspecified Status: Acute (3) Lupus (systemic lupus erythematosus) Code(s): M32.9 - Systemic lupus erythematosus, unspecified Status: Acute - Plan Nonspecific abdominal pain, persistent Nausea and vomiting. Resolved -possible constipation vs gastroenteritis vs SLE flare. -Abdominal/pelvis CT was unremarkable kidneys and urinary bladder. No inflammatory change. Moderate amount of stool present. -CBC and BMP unremarkable. Urinalysis without any signs of infection -Continue IVF to ensure hydration. -Pain control with IV Dilaudid as needed per pain scale. -Antiemetics as needed. -Patient tolerating liquid diet -Naphthalene Still Operator was consulted who is recommending EGD/colonoscopy -Awaiting EGD/colonoscopy Febrile illness, resolved -Unknown etiology at this time, -Influenza testing was negative -Blood cultures are negative for 1 day -Chest x-ray showing probable small right pleural effusion, mild atelectatic changes laterally in the left lung -CT of the abdomen and pelvis shows mild bibasilar patchiness consistent with atelectasis, small right pleural effusion, anasarca, hepatomegaly, 1 mm calcified nonobstructing right renal calculi -Urinalysis does not indicate any signs of infection Hematuria. Improving -UA negative for infection. -Urology consulted for further recommendations, they recommended renal bladder ultrasound if normal follow-up outpatient cystoscopy. -Renal bladder ultrasound did not indicate any acute abnormality which could cause her hematuria Atypical chest pain. Resolved History of bradycardia -Could have been secondary to a lupus flare -Patient ruled out for any cardiac etiology with serial cardiac enzymes remain negative, serial EKGs without any changes History of systemic lupus erythema Possible flare, improving. -Patient does complain of upper thigh bruising, says this is typical for her when she is having a flare. -LDH, reticulocyte count and haptoglobin all within normal limits. -Sed rate, C-reactive protein have mild elevations. Awaiting TUCKER -H&H stable. Platelets stable. -Continue steroids at this time Hypothyroidism, chronic -Continue home Synthroid. DVT prophylaxis: -Low risk, ambulation Discharge Planning: Discharge planning once cleared by GI (2) Hematuria Qualifiers: Hematuria type: gross Qualified Code(s): R31.0 - Gross hematuria (3) Lupus (systemic lupus erythematosus) Qualifiers: Systemic lupus erythematosus type: unspecified Systemic lupus erythematosus organ involvement: unspecified Qualified Code(s): M32.9 - Systemic lupus erythematosus, unspecified
[2018-03-12] MEDS: Acetaminophen 325 MG Tablet PO PRN (11:22)
--- NOTE | 2018-03-12 13:23 | P.PCN ---
Date of procedure: 03/12/18 Pre-op diagnosis: Nausea, vomiting, abdominal pain and anemia Post-op diagnosis: other (Gastritis, duodenitis and incomplete bowel prep) Procedure: Indication; nausea, vomiting, abdominal pain and anemia Procedure Performed; upper endoscopy with biopsy Colonoscopy: Incomplete exam due to poor prep After informing the patient about procedure and possible complications consent was signed. history and physical were updated. Patient was taken to the procedure room and placed in position. Time out was completed. Adequate sedation was performed by anesthesia provider. Upper Endoscopy, the scope was placed in the mouth advanced under video guide to the second portion of the duodenum, then the scope was withdrawal to the stomach and retro-flexion was performed, the scope was withdrawal to the esophagus then out of the mouth without any immediate complication Colonoscopy, rectal exam was performed the scope was placed in the rectum advanced under video guide to the ascending colon but the prep was poor and mucosa could not be adequately cleared so the scope was withdrawn. The scope was withdrawal without any immediate complication Findings; colonoscopy, prep inadequate. Terminal ileum : not visualized Colon: No large mass lesions seen however the prep was not adequate to clear the colon. Rectum: normal Esophagus: Z line at 40 cm, some mild rings seen in esophagus so biopsies obtained from mid and distal esophagus. Stomach: Mild erythema with punctate small erosions seen in linear distribution. Biopsies obtained from body and antrum. Retroflex showed normal cardia and now hiatal hernia. No ulcers seen. Duodenum: friable foveolar hyperplasia seen and biopsied in the bulb. 2nd portion normal. Recommendations; 1- Supportive care 2- ok to transfer to recovery area then return to floor. 3-consult with Dr Desir for bowel prep for colonoscopy to be repeated. 4-Repeat bowel prep and repeat colonoscopy. 5-EGD repeat endoscopy as needed. Anesthesia: MAC Surgeon: Jayant Arroyo Pathology: other (Duodenal bulb, antrum, gastric body, distal esophagus, mid esophagus.) Condition: stable Disposition: floor
[2018-03-12 14:18] VITALS: TEMP 97.8; O2SAT 95
[2018-03-12 14:20] VITALS: BP 148/89; PULSE 70
--- NOTE | 2018-03-12 16:00 | P.DS ---
Date of admission: 03/07/18 11:42 Primary care physician: UNKNOWN Attending physician on discharge: Winifred Stein Anticipated date of discharge: 03/12/18 Brief History from admission: This is a pleasant 37-year-old female patient with a known medical history of lupus and hypothyroidism presented to the ED with a 4-day complaint of abdominal pain and hematuria. Patient has been to the ER 3 times in the past week with the same complaints, she states that her abdominal pain has worsened over the past several days, starting in her left upper quadrant and radiating to the mid abdomen as well as left back pain. She does admit to subjective fevers at home with a T-max of 101 as well as chills, as well as nausea and vomiting. She has been unable to eat or drink anything without any emesis and nausea. Patient also states that she noticed blood in her urine 4 days ago which has not improved. Patient does not follow with a industrial relations specialist, states that due to insurance reasons she has not followed up. She does take Plaquenil at home. Her last serious flare-up of lupus was roughly 3 years ago and at that time she did have hematuria and followed with a urologist. Patient states she may be having a flare-up, states that she has some bruising on her upper extremities as well as the overall pain, this is similar to what she has had in the past. DS: Diagnosis - Discharge Diagnosis (1) Intractable abdominal pain Status: Acute (2) Hematuria Status: Acute (3) Lupus (systemic lupus erythematosus) Status: Acute DS: Medications - Discharge Medications Prescriptions: dicyclomine 20 mg PO QID PRN #20 tab PRN Reason: Abdominal Pain pantoprazole [Protonix] 40 mg PO BID #60 tab prednisone See Label Instructions PO PER PKG DIR #21 each DS: Summary Hospital Course: 37-year-old female with known history of lupus, hypothyroidism with recurrent visits to the hospital. This is her third visit to the emergency room for hematuria, abdominal pain. Patient had multiple workups done amatory studies, CT of the abdomen without any significant abnormality noted. Patient was admitted on 03/07/18 at the request of the emergency department because the patient was seen 2 times in the last 4 days and has continued complaints of abdominal pain and hematuria. Urinalysis was showing hematuria. Patient was afebrile in the emergency department. Patient was requested admission for pain control. Patient was admitted the hospital with urology and gastroenterology consultation. Patient had full extensive workup performed. Urology evaluated for the hematuria, repeat urinalysis showed significant improvement of her hematuria. Urologist indicated that ultrasound of the renal bladder need to be performed and if it was normal without any acute abnormality patient can follow- up outpatient with outpatient cystoscopy. Ultrasound was performed and did not indicate any acute abnormality. Patient had multiple CT scans done of the abdomen first 1 dated on 03/02/18, then 03/06/18 and then 03/10/18. All of which did not indicate any acute abnormality. There was indication of moderate amount of stool in the distal colon and nonobstructive bowel gas pattern. Tiny 1 mm calcified nonobstructing mid pole right renal calculus without any signs of obstruction. During the patient's stay she did spike a fever on 03/09/18 and 102.9 and has had intermittent elevated temperatures throughout her stay and is been afebrile since 03/10/18. Workup does not indicate any acute infectious process, blood cultures have remained negative for 2 days, influenza testing was negative, chest x-ray did not indicate any acute abnormality. CT scan does not indicate any infectious process. High Reach Operator was consulted and evaluated the patient. Initially recommending outpatient endoscopy but because of the patient's continued pain patient did undergo EGD and colonoscopy during her stay in the hospital. Colonoscopy had a poor prep, however in the colon there was no masses seen. Esophagus revealed Z line at 40 cm and biopsies were obtained from mid and distal esophagus. There is mild erythema and small erosions seen in a linear distribution no ulcers were seen. There is friable foveolar hyperplasia seen and biopsied in the bulb. Second portion was normal. Case was discussed with the cashier tube room extensively. He indicated that endoscopy did not indicate any acute reason for her abdominal pain. Recommended outpatient follow-up at that time they can redo bowel prep to perform colonoscopy. Patient indicates that she possibly has a lupus exacerbation. Patient did have workup done with mild elevations in inflammatory markers. No significant elevation indicating acute flare. However patient was started on Solu-Medrol without any significant improvement of her symptoms. Patient had significant subjective pain management shortcomings. Patient was ultimately continued on Dilaudid 2 mg IV every 4 hours for pain, after that adjustment she did not have any complaints about pain management. Patient was started on diet and tolerated diet well. After extensive amount of workup, procedures, radiological studies. It was difficult to ascertain the actual etiology of her subjective discomfort. All specialist on the patient's case indicated the patient is clear for discharge with outpatient follow-up. We will plan discharge accordingly. Upon nursing staff getting patient ready for discharge, patient was being very demanding about receiving narcotic pain medication upon discharge. They indicated that if she did not receive any narcotic pain medication that she is going to go home and come right back to the hospital in 1 hour. Upon review of medical records it does appear the patient was already prescribed narcotic pain medication by ER physicians to include oxycodone 10 mg #20 on 03/02/18, oxycodone 10 mg #20 on , as well as another prescription for Percocet 5. The patient apparently has gone through oxycodone 10 mg 40 tablets and roughly 4-5 days. Would highly recommend discharge without any narcotic medication due to apparent overuse. - Time Spent with Patient Total time spent providing and/or coordinating discharge services: Greater than 30 minutes - Quality: VTE Deep Vein Thrombosis/Pulmonary Embolism Present on Admission: No Exam Vital signs: Vital Signs 03/11/18 16:00 03/11/18 18:57 03/11/18 20:00 Temperature 97.4 F L 98.3 F Pulse Rate 61 65 Respiratory Rate 18 18 20 Blood Pressure 136/66 122/66 Pulse Oximetry 98 97 03/12/18 00:00 03/12/18 08:00 03/12/18 11:52 Temperature 97.9 F 96.7 F L 98.4 F Pulse Rate 78 62 74 Respiratory Rate 20 16 16 Blood Pressure 115/63 193/101 H 180/112 H Pulse Oximetry 97 99 99 03/12/18 13:25 03/12/18 13:53 Temperature 97.8 F 97.8 F Pulse Rate 56 L 70 Respiratory Rate 16 16 Blood Pressure 136/83 148/89 H Pulse Oximetry 95 95 Intake & Output 03/11/18 03/12/18 03/12/18 18:59 06:59 18:59 Intake Total 1300 / 1300 1000 / 1000 1300 / 1300 Output Total 200 / 200 Balance 1300 / 1300 1000 / 1000 1100 / 1100 Weight 82.8 kg 80.8 kg Intake: IV 1000 / 1000 1000 / 1000 900 / 900 NS Inj 1,000 ML @ 100 mls/hr IV 1000 / 1000 1000 / 1000 900 / 900 .CONT .Q10H [facility] Rx#:[id number] Oral 300 / 300 Anesthesia Amount 400 / 400 Output: Urine 200 / 200 Other: # Voids 1 3 Date of Last Bowel Movement 03/11/18 03/12/18 # Bowel Movements 5 Narrative: GENERAL: Well-developed, well-nourished, in no acute distress. alert and orientated HEENT: Head is normocephalic without any lesions or masses noted. Facial features are symmetric. Eyes: Extraocular muscles are intact. CARDIAC: Regular rhythm, regular rate. S1/S2 are heard. No murmurs gallops or rubs. LUNGS: Clear to auscultation bilaterally. No wheeze, rhonchi or rales. No use of accessory muscles on inspiration or expiration. ABDOMEN: Soft, nondistended. Diffuse abdominal pain. No point tenderness. Bowel sounds heard in all 4 quadrants. No organomegaly or masses. Negative rebound, negative guarding EXTREMITIES: No edema, pulses are equal bilaterally. No cyanosis or clubbing NEUROLOGY: Mood and affect appear appropriate. Cranial nerves II through XII grossly intact. Moving all extremities, speech is clear Results Procedures completed during hospitalization: EGD/colonoscopy Findings; colonoscopy, prep inadequate. Terminal ileum : not visualized Colon: No large mass lesions seen however the prep was not adequate to clear the colon. Rectum: normal Esophagus: Z line at 40 cm, some mild rings seen in esophagus so biopsies obtained from mid and distal esophagus. Stomach: Mild erythema with punctate small erosions seen in linear distribution. Biopsies obtained from body and antrum. Retroflex showed normal cardia and now hiatal hernia. No ulcers seen. Duodenum: friable foveolar hyperplasia seen and biopsied in the bulb. 2nd portion normal. Pending studies at discharge: Pending at discharge 03/12/18 Surgical [PTH] Routine Labs on day of discharge: Preliminary micro results at discharge 03/10/18 12:43 Aerobic Blood Culture - Preliminary Blood - Peripheral No growth in 2 days Anaerobic Blood Culture - Preliminary No growth in 2 days 03/10/18 12:33 Aerobic Blood Culture - Preliminary Blood - Peripheral No growth in 2 days Anaerobic Blood Culture - Preliminary No growth in 2 days - Impressions ITS Impressions Abdomen/Pelvis CT 03/10/18 00:00 CONCLUSION: 1. Mild bibasilar patchiness consistent with atelectasis and/or infiltrates. Clinical correlation is recommended. 2. Small right pleural effusion and tiny left pleural effusion. 3. Anasarca. 4. Hepatomegaly. 5. Tiny 1 mm calcified nonobstructing mid pole right renal calculus. 6. Mild scoliosis and degenerative changes of the lumbar spine. Chest X-Ray 03/10/18 00:00 CONCLUSION: 1. Probable small right-sided pleural effusion with blunting of the lateral and posterior costophrenic angles. 2. Mild atelectatic changes laterally in the left lung base. Abdomen/Bladder Ultrasound 03/11/18 13:13 CONCLUSION: 1. The kidneys are unremarkable in appearance with no focal lesion or hydronephrosis. The tiny less than 1 mm nonobstructing right renal calculus seen on CT is not visualized. 2. The liver is again noted to be prominent. 3. Small left pleural effusion. Discharge Plan - Discharge Disposition Patient Disposition: 01 Discharge Home - Discharge Condition Condition: Stable - Discharge Order Discharge Orders: Discharge Order (Routine); Ordered 03/12/18 Ordered By: Christopher Boyle - Discharge Details Anticipated Discharge Date: 03/12/18 - Physicians Team Primary Care Provider: UNKNOWN, Attending Provider: Winifred Stein Other Providers: Shan Mancia MD ; Duane Desir MD
== END 2018-03-12 16:40 | disposition home or self-care (01) ==
LOC: PHEDA 08:44 → PHED 08:44 → PHEDA 13:29 → PH3 13:48
PROVIDERS: ADMIT Hospitalist; ATTEND Hospitalist
PROC: PANENDO (2018-03-12 12:29)
PROC: COLONOS (2018-03-12 12:29)